=== PATIENT | male | born 1960 | race Caucasian/White ===

== ENCOUNTER 2023-04-29 18:59 | Observation (INO) | payer MEDICARE, SELFPAY ==
[2023-04-29 19:01] VITALS: BP 155/85; PULSE 66; RESP 15; TEMP 36.1; O2SAT 100; BMI 27.3
--- NOTE | 2023-04-29 19:36 | EKG12_ITS ---
Test Reason : ABNORMAL LABS Blood Pressure : / mmHG Vent. Rate : 062 BPM Atrial Rate : 062 BPM P-R Int : 206 ms QRS Dur : 138 ms QT Int : 464 ms P-R-T Axes : 043 -56 020 degrees QTc Int : 470 ms Normal sinus rhythm Right bundle branch block Left anterior fascicular block Bifascicular block Abnormal ECG Confirmed by REMIGIO VELASQUEZ, TANIKA ([id number]), medical transcription editor SANDY ORELLANA ([id number]) on 04/30/2023 9:37:46 AM Referred By: Confirmed By:TANIKA FLOOD MD
--- NOTE | 2023-04-29 19:39 | EX.ED.DYSGE1 ---
HPI History of Present Illness Chief Complaint: Abn Labs Informant: patient and spouse/S.O. Narrative Narrative: 63-year-old male significant medical history includes diabetes DVT brain aneurysm coronary artery disease hypertension presenting to the emergency department this Sunday night after being told on Sunday that he was in renal failure. Patient states that he recently moved from [place] and establish primary care several weeks ago. He went last week and had blood work for the first time with the [facility]. He brings a copy of the labs with him which show the following significant abnormalities (but not limited to): Hemoglobin 9.2 Platelet count 136 Sodium 137 potassium 4.9 Creatinine 2.91 BUN 60 glucose 140 CO2 18 Anion gap 14 Hemoglobin A1c 6.5 Random urine creatinine 57.4 Patient states that he received a call on Sunday telling him to come right to emergency out of concern for renal failure. States he really does not feel any different. He states that he was unsure if his insurance is excepted to this hospital and needs that checked before he will allow an evaluation. [facility] Medical History (Updated 04/29/23 @ 21:[address] Rola Bradshaw MD) Brain aneurysm Chronic anticoagulation Coronary artery disease Degenerative joint disease of left hip Diabetes mellitus Diabetic ulcer of left foot Diabetic ulcer of left great toe DVT (deep venous thrombosis) Hypertension Pulmonary embolism Home Medications amitriptyline 50 mg tablet 50 mg PO QHS SLEEP 04/29/23 [History Last Taken Unknown] amlodipine 5 mg tablet 5 mg PO DAILY BP 04/29/23 [History Last Taken Unknown] atorvastatin 80 mg tablet 80 mg PO QHS HYPERLIPIDEMIA 04/29/23 [History Last Taken Unknown] buspirone 5 mg tablet 5 mg PO TID anxiety 04/29/23 [History Last Taken Unknown] dulaglutide 1.5 mg/0.5 mL subcutaneous pen injector (Trulicity) 1.5 mg subcut QWEEK diabetes 04/29/23 [History Last Taken Unknown] gabapentin 300 mg capsule 300 mg PO Q12H neuropathy 04/29/23 [History Last Taken Unknown] losartan 100 mg tablet 100 mg PO DAILY hypertension 04/29/23 [History Last Taken Unknown] metoprolol tartrate 100 mg tablet 100 mg PO Q12H heart rate and blood pressure 04/29/23 [History Last Taken Unknown] naproxen 500 mg tablet 500 mg PO PRN pain 04/29/23 [History Last Taken Unknown] nitroglycerin 0.4 mg sublingual tablet 0.4 mg sublingual Q5M PRN chest pain 04/29/23 [History Last Taken Unknown] oxycodone myristate 13.5 mg capsule sprinkle extend release 12hr(DON'T CRUSH) (Xtampza ER) 13.5 mg PO Q12H lower extremity pain 04/29/23 [History Last Taken Unknown] ranolazine 500 mg tablet,extended release,12 hr 500 mg PO Q12H chest pain 04/29/23 [History Last Taken Unknown] venlafaxine 150 mg capsule,extended release 24 hr 150 mg PO DAILY depression 04/29/23 [History Last Taken Unknown] venlafaxine 75 mg capsule,extended release 24 hr 75 mg PO DAILY depression 04/29/23 [History Last Taken Unknown] Allergy/AdvReac Type Severity Reaction Status Date / Time No Known Allergies Allergy Verified 04/29/23 19:28 Surgical History (Updated 04/29/23 @ 20:27 by Marko Goodwin) H/O superior vena cava filter placement History of cholecystectomy Social History (Updated 04/29/23 @ 21:[address] Sujit Hughes, DO) Smoking Status: Current every day smoker Smokeless tobacco user: chewing tobacco ROS ROS ED Constitutional Constitutional ED: Denies chills or weight loss Eyes Eyes: Denies change in vision or diplopia ENT ENT ED: Denies ear pain, rhinorrhea or sore throat Cardiovascular Cardiovascular: Denies chest pain, orthopnea, palpitations or racing heartbeat Respiratory/Chest Respiratory/Chest: Denies cough, dyspnea or orthopnea Gastrointestinal Gastrointestinal: Denies abdominal pain, diarrhea, nausea or vomiting Genitourinary Genitourinary ED: Denies dysuria, hematuria or urinary frequency Musculoskeletal Musculoskeletal: Denies arthralgias or myalgias Integumentary Denies abscess or rash Neurologic Neurologic: Denies headache(s) or weakness Psychiatric Psychiatric: Denies anxiety, depression, suicidal ideation or suicidal thoughts Endocrine Endocrinology: Denies polydipsia, polyphagia or polyuria Allergic/Immunologic Allergic/Immunologic ED: Denies mouth swelling, tongue swelling or urticaria EXAM Physical Exam Const Vital Signs: 04/29/23 19:01 04/29/23 20:32 04/29/23 20:51 Temperature 96.9 F L Temperature Source Temporal Pulse Rate 66 Respiratory Rate 15 Respiratory Effort Normal Respiratory Pattern Normal Blood Pressure 155/85 H 171/87 H Blood Pressure Mean 108 115 Pulse Ox 100 Oxygen Delivery Method Room Air Positive well nourished and well developed General Appearance ED: well developed HEENT Reports normocephalic, head/scalp atraumatic and moist mucous membranes Eyes PERRL and EOMs intact bilaterally Neck no lymphadenopathy, supple and no JVD Resp normal respiratory effort and clear to auscultation bilaterally Cardio regular rate, regular rhythm and no murmurs GI normal to inspection, nondistended, normoactive bowel sounds and non-tender Palpation: soft Back/Spine no CVA tenderness and normal ROM Extremity normal to inspection General Extremety ED: Negative for edema General Extremity: Negative for edema Neuro oriented x3 and CN's II-XII intact bilaterally Sensorium / Orientation: alert Motor Exam: strength 5/5 throughout Psych mental status grossly normal Mood & Affect: Negative for depressed or tearful Skin no rashes or lesions noted and no wounds MDM MDM MDM Narrative Medical decision making narrative: White count has risen to 12.5 from 9.6. Remains thrombocytopenic at 134 hemoglobin 10.8. Creatinine tonight is 2.84 with a potassium now 5.3. I do not see any significant EKG changes related to the hyperkalemia. He does have 500 protein in the urine FeNa calculated at 3%. No obvious infection. Spoke with nephrology. Recommendation because we do not know what his baseline creatinine is and now has some degree of hyperkalemia is to have him admitted for renal ultrasound and further evaluation. Patient is consenting to this. I will speak with the hospitalist regarding admission History & Record Review Discussion w/independent historian: Patient and Significant other Additional record(s) reviewed:: Prior labs Lab Data Attestation: I reviewed the patient's lab results. Labs: Laboratory Results - last 24 hr 04/29/23 04/29/23 19:55 20:09 WBC 12.5 H RBC 3.40 L Hgb 10.8 L Hct 31.8 L MCV 93.5 MCH 31.8 MCHC 34.0 RDW Std Deviation 45.9 H RDW Coeff of Padmaja 13.4 Plt Count 134 L MPV 12.2 H Immature Gran % (Auto) 0.400 Neut % (Auto) 70.9 H Lymph % (Auto) 14.8 L Major % (Auto) 10.9 H Eos % (Auto) 2.2 Baso % (Auto) 0.8 Absolute Neuts (auto) 8.9 H Absolute Lymphs (auto) 1.86 Nucleated RBC % 0 Sodium 137 Potassium 5.3 H Chloride 106 Carbon Dioxide 21.0 Anion Gap 10 BUN 51 H Creatinine 2.84 H Estim Creat Clear Calc 26.62 Est GFR (MDRD) Af Amer 29 L Est GFR (MDRD) Non-Af 24 L BUN/Creatinine Ratio 18.0 Glucose 140 H Calcium 9.0 Total Bilirubin 0.70 Direct Bilirubin 0.12 AST 23 ALT 18 Alkaline Phosphatase 79 Total Protein 10.0 H Albumin 2.8 L Globulin 7.2 H Urine Color Yellow Urine Clarity Clear Urine pH 6.5 Ur Specific [place] 1.015 Urine Protein 500 H Urine Glucose (UA) 100 H Urine Ketones Negative Urine Occult Blood 25 H Urine Nitrite Negative Urine Bilirubin Negative Urine Urobilinogen Normal Ur Leukocyte Esterase Negative Urine RBC 0-5 SEEN Urine WBC 0-5 SEEN Ur Squamous Epith Cells 0 SEEN Urine Bacteria 0 SEEN Urine Mucus 0 SEEN Ur Random Sodium 65 Urine Creatinine 45.60 EKG Initial EKG: Attestation: I personally reviewed and interpreted this EKG as follows: Comments: Normal sinus rhythm ventricular rate of 62 bpm. Right bundle branch block and left anterior fascicular block seen. No prior EKGs in hospital system to compare to Prior EKG tracings: not available for review Discharge Plan Dx/Rx/DC Orders Clinical Impression: ROSALBA (acute kidney injury), Diabetes, Coronary artery disease, Chronic anticoagulation, Hypertension, Hyperkalemia Disposition Disposition: Acute Care Hospital [facility]
--- OUTSIDE RECORDS SUMMARY | 2023-04-29 19:48 | XMS RPT_ITS | CCD ---
Author Name Unknown Address [address] [place] [address] Organization [facility] Care Team Providers Care Nuclear Medicine Tech Name Role Phone Romero Rhoades MD Primary Care Provider Herminia Meraz APRN.CNP Primary Care Provider HERMINIA MERAZ Attending Unavailable ROMERO RHOADES Primary Care UnavailRomero Brunson MD Primary Care Provider Darrick Gomes MD Unavailable Ellie Unavailable DEVAN FOSTER Attending Unavailable ROMERO RHOADES Referring Unavailab ROMERO Restrepo Primary Care Unavailab ROMERO Restrepo Attending Unavailab ROMERO Restrepo Primary Care Unavailab HERMINIA Singh Primary Care Unavailable ROMERO RHOADES Attending Unavailab HERMINIA Singh Primary Care Unavailable ROMERO RHOADES Primary Care Unavailab ROMERO Restrepo Referring Unavailab ROMERO Restrepo Primary Care Unavailab ROMERO Restrepo Attending Unavailab DEVAN Langford Referring Unavailable DEVAN FOSTER Attending Unavailable ROMERO RHOADES Primary Care Unavailab DEVAN Langford Attending Unavailable ROMERO RHOADES Primary Care Unavailab DEVAN Langford Referring Unavailable ROMERO RHOADES Primary Care Unavailab le Medications Current Medications Medication Drug Class(es) Dates Sig (Normalized) Sig (Original) amLODIPine 5 mg oral tablet (11 sources) Dihydropyridine Calcium Channel Clair Start: 01-10-2023 End: 04-10-2023 take 1 tablet by mouth once daily amLODIPine (NORVASC) 5 mg tablet Take 1 tablet by mouth once daily. 30 tablet 2 01/10/2023 04/10/2023 Active Completed/Discontinued Medications Medication Drug Class(es) Dates Sig (Normalized) Sig (Original) amitriptyline hydrochloride 50 mg oral tablet (8 sources) Tricyclic Antidepressant Start: 08-29-2022 take 1 tablet by mouth at bedtime amitriptyline (ELAVIL) 50 mg tablet TAKE 1 TABLET BY MOUTH AT BEDTIME FOR 30 DAYS 0 08/29/2022 Active Problems Active Problems Problem Classification Problem Date Documented Da te Episodic/Chronic Administrative/social admission (3 sources) Patient encounter status; Translations: [Persons encountering health services in other specified circumstances] 11-13-2022 Episodic Anxiety disorders (11 sources) Anxiety; Translations: [Anxiety disorder, unspecified] Onset: 11-13-2022 11-13-2022 Chronic Chronic ulcer of skin (1 source) Non-pressure chronic ulcer of left heel and midfoot with other specified severity; Translations: [Diabetic ulcer of left midfoot associated with diabetes mellitus due to underlying condition, with other ulcer severity (HCC)] Onset: 01-22-2023 Chronic Coronary atherosclerosis and other heart disease (6 sources) Stable angina; Translations: [Other forms of angina pectoris] Onset: 01-10-2023 11-23-2022 Chronic Diabetes mellitus with complications (2 sources) Diabetes mellitus due to underlying condition with foot ulcer; Translations: [Secondary diabetes mellitus with other specified manifestations, not stated as uncontrolled, or unspecified] Onset: 01-22-2023 01-22-2023 Chronic Diabetes mellitus without complication (12 sources) Type 2 diabetes mellitus without complication; Translations: [Type 2 diabetes mellitus without complications] Onset: 11-09-2022 11-09-2022 Chronic Disorders of lipid metabolism (12 sources) Mixed hyperlipidemia; Translations: [Mixed hyperlipidemia] Onset: 11-09-2022 11-09-2022 Chronic Essential hypertension (12 sources) Essential hypertension; Translations: [Essential (primary) hypertension] Onset: 11-09-2022 11-09-2022 Chronic Immunizations and screening for infectious disease (1 source) Encounter for immunization; Translations: [Encounter for immunization] Onset: 04-24-2023 Episodic Mood disorders (10 sources) Moderately severe depression; Translations: [Moderately severe depression] Onset: 11-13-2022 11-09-2022 Chronic Mood disorders (2 sources) Mood disorders; Translations: [Moderately severe depression] Onset: 11-09-2022 Nutritional deficiencies (1 source) Vitamin D deficiency; Translations: [Vitamin D deficiency, unspecified] 01-19-2023 Chronic Other diseases of veins and lymphatics (4 sources) Stasis dermatitis; Translations: [Venous insufficiency (chronic) (peripheral)] Onset: 01-11-2023 01-16-2023 Episodic Other gastrointestinal disorders (1 source) Diarrhea; Translations: [Diarrhea, unspecified] 11-09-2022 Episodic Other nervous system disorders (1 source) Other chronic pain; Translations: [Chronic midline low back pain without sciatica] Onset: 11-09-2022 Chronic Other screening for suspected conditions (not mental disorders or infectious disease) (2 sources) Encounter for screening for malignant neoplasm of prostate; Translations: [Encounter for screening for lipoid disorders] Onset: 11-09-2022 Episodic Peripheral and visceral atherosclerosis (3 sources) Peripheral vascular disease; Translations: [Peripheral vascular disease, unspecified] Onset: 01-11-2023 01-11-2023 Chronic Substance-related disorders (3 sources) Tobacco user; Translations: [Nicotine dependence, unspecified, uncomplicated] Onset: 01-10-2023 01-10-2023 Chronic Thyroid disorders (11 sources) Goiter; Translations: [Nontoxic goiter, unspecified] Onset: 11-09-2022 11-09-2022 Chronic Unclassified (1 source) Chronic midline low back pain without sciatica; Translations: [Chronic midline low back pain without sciatica] Onset: 11-09-2022 Past or Other Problems Problem Classification Problem Date Documented Da te Episodic/Chronic Open wounds of extremities (12 sources) Disorder of foot; Translations: [Unspecified open wound, left foot, initial encounter] Onset: 11-09-2022 11-09-2022 Episodic Other upper respiratory infections (11 sources) Posterior rhinorrhea; Translations: [Postnasal drip] Onset: 11-09-2022 11-09-2022 Episodic Spondylosis; intervertebral disc disorders; other back problems (10 sources) Chronic low back pain; Translations: [Chronic midline low back pain without sciatica] Onset: 11-13-2022 11-09-2022 Episodic Results Test Name Value Interpretation Reference Range Facil ity Vital Signs Date Time Vital Sign Value Performing Clinician Milagros umaña 11-09-2022 16:15-0400 Body temperature 97.81 [degF] Herminia Queden VP INFORMATICS.DRUG ABUSE COUNSELOR Work Phone: [facility] 11-09-2022 16:15-0400 Diastolic blood pressure 76 mm[Hg] Herminia Queden VP INFORMATICS.DRUG ABUSE COUNSELOR Work Phone: [facility] 11-09-2022 16:15-0400 Heart rate 45 /min Herminia Queden VP INFORMATICS.DRUG ABUSE COUNSELOR Work Phone: [facility] 11-09-2022 16:15-0400 Respiratory rate 20 /min Herminia Queden VP INFORMATICS.DRUG ABUSE COUNSELOR Work Phone: [facility] 11-09-2022 16:15-0400 SaO2% (BldA) [Mass fraction] 97 % Herminia Queden VP INFORMATICS.DRUG ABUSE COUNSELOR Work Phone: [facility] 11-09-2022 16:15-0400 Systolic blood pressure 120 mm[Hg] Herminia Queden VP INFORMATICS.DRUG ABUSE COUNSELOR Work Phone: [facility] Encounters Encounter Date Encounter Type Care Provider Facility Start: 04-24-2023 End: 04-25-2023 ambulatory ROMERO RHOADES Facility:[facility] Start: 04-24-2023 End: 04-25-2023 ambulatory ROMERO RHOADES Facility:[facility] Start: 04-17-2023 End: 04-17-2023 ambulatory DEVAN FOSTER Facility:[facility] Start: 03-16-2023 End: 03-16-2023 ambulatory [facility] Facility:[facility] Start: 01-22-2023 End: 01-22-2023 ambulatory [facility] Facility:[facility] Start: 01-22-2023 End: 01-22-2023 ambulatory [facility] Facility:[facility] Start: 01-22-2023 End: 01-22-2023 Subsequent hospital visit by physician [facility] Cruz Chau Work Phone: Radiology Procedures Date Procedure Procedure Detail Performing Clinician Start: 01-22-2023 Radex foot complete minimum 3 views Devan Lomaxlena Work Phone: Plan of Treatment Date Care Activity Detail Author Start: 01-11-2024 Annual PCP Team Perfume Compounder marivel Disease Visit Annual PCP Team Chronic Disease Visit [facility] Start: 01-11-2024 Hepatitis B Vaccine (1 of 3 - Risk 3-dose series) Hepatitis B Vaccine (1 of 3 - Risk 3-dose series) [facility] Immunizations Immunization Date Immunization Notes Care Provider Fa cility 01-10-2023 influenza, injectabl e, quadrivalent, contains preservative Romero Rhoades MD Work Phone: [facility] 03-16-2022 COVID-19 original vaccine, full dose, monovalent (MODERNA) Romero Rhoades MD Work Phone: [facility] 04-22-2021 COVID-19 original vaccine, full dose, monovalent (MODERNA) Romero Rhoades MD Work Phone: [facility] 08-02-2020 COVID-19 original vaccine, full dose, monovalent (MODERNA) Romero Rhoades MD Work Phone: [facility] 07-05-2020 COVID-19 original vaccine, full dose, monovalent (MODERNA) Romero Rhoades MD Work Phone: [facility] 07-05-2020 COVID-19 vaccine, ag e 12+ yr, bivalent (MODERNA) Romero Rhoades MD Work Phone: [facility] Payers Date Payer Category Payer Medicare HUMANA MEDICARE HU[employer]NA GOLD PLUS [id number] 2019-Present [id number] [place] [id number] O [id number] 2019 Private Health Insurance [id number] Social History Date Type Detail Facility Start: 11-09-2022 [facility] History of tobacco use Current smoker [facility] History of tobacco use Cigarette Smoker [facility] Start: 11-09-2022 End: 01-22-2023 Tobacco use and exposure User of smokeless tobacco [facility] of tobacco use [facility] Start: 11-09-2022 End: 01-22-2023 Alcohol intake Ex-drinker (finding) [facility] Start: 11-09-2022 End: 01-10-2023 History of Social function [facility] Work Phone: Start: 11-09-2022 End: 01-10-2023 Tobacco use panel [facility] Work Phone: National Score (1-100), lower number is lower risk 70 [facility] Work Phone: Start: 1960 Sex Assigned At Not on file [facility] Start: 01-10-2023 End: 01-22-2023 Tobacco smoking status NHIS Smokes tobacco daily [facility] Work Phone: Start: 01-10-2023 Tobacco Comment Used to smoke 1/2 pack per day. Chewing 1 can per week. [facility] Start: 01-22-2023 Tobacco Comment Used to smoke 3 per day. Chewing 1 can per week. [facility] Clinical Notes 11-09-2022 to 04-19-2023 Neli Sultana, RT(R) - 01/22/2023 10:30 AM EDTTelephone Encounter - Gricelda Goodwin LPN - 01/19/2023 2:41 PM EDTTelephone Encounter - Devna Foster - 01/19/2023 1:37 PM EDTPatient Instructions Note Date & Type Note Facility 04-19-2023 Note HNO ID: [id number] Author: DEVAN FOSTER, ? Service: ? Author Type: Physician Type: Progress Notes Filed: 04/19/2023 07:22 Note Text: FOLLOW UP PODIATRIC OFFICE VISIT Chief Complaint: This 63 year old who presents for follow up:left foot ulceration. Patient presents to clinic for follow-up left hallux and left forefoot ulceration. Reports to using his diabetic shoe or surgical shoe. No other complaints. PAIN EVALUATION No data found in the last 1 encounters. No results found for: HBA1C PCP: Romero Rhoades MD PAST MEDICAL HISTORY Diagnosis Date Anxiety Brain aneurysm right optic nerve CAD (coronary artery disease) stent x1 CHF (congestive heart failure) ([facility]) Patient reports EF 45% Chronic leg pain Dr. Gomes Chronic lower back pain Dr. Gomes History of DVT (deep vein thrombosis) Hyperlipidemia Hypertension Moderately severe depression Myocardial infarction (HCC) x2 OA (osteoarthritis) of hip left Overweight (BMI 25.0-29.9) Presence of IVC filter Stasis dermatitis of both legs Thyroid enlargement Tobacco use disorder Type 2 diabetes (HCC) Wound of left lower extremity Dr. Argueta for podiatry Wound of right lower extremity Current Outpatient Medications Medication Sig busPIRone (BUSPAR) 5 mg tablet Take 1 tablet by mouth three times a day. TRULICITY 1.5 mg/0.5 mL pen injector Inject 1.5 mg subcutaneously one time a week. metoprolol tartrate, short acting, (LOPRESSOR) 100 mg tablet Take 1 tablet by mouth two times a day. amLODIPine (NORVASC) 5 mg tablet Take 1 tablet by mouth once daily. XTAMPZA ER 9 mg CSpT Take 1 capsule by mouth twice daily. Dr. Mendoza nitroglycerin sublingual (NITROQUICK) 0.4 mg SL tablet Dissolve 1 tablet under the tongue every 5 minutes as needed for chest pain. venlafaxine ER (EFFEXOR XR) 150 mg 24 hr capsule 1 capsule once daily. furosemide (LASIX) 40 mg tablet Take 1 tablet by mouth once daily. rivaroxaban (XARELTO) 20 mg tablet Take 1 tablet by mouth daily with dinner. ranolazine ER (RANEXA) 500 mg 12 hr tablet 1 tablet twice daily. losartan (COZAAR) 100 mg tablet Take 100 mg by mouth once daily. naproxen (NAPROSYN) 500 mg tablet Take 1 tablet by mouth twice daily with meals. atorvastatin (LIPITOR) 80 mg tablet Take 1 tablet by mouth once daily. Psyllium Husk-Aspartame (METAMUCIL SUGAR-FREE, ASPART,) 3.4 gram/5.8 gram powd Take 1 Dose by mouth once daily. doxycycline hyclate (VIBRAMYCIN) 100 mg capsule Take 1 capsule by mouth two times a day. venlafaxine ER (EFFEXOR XR) 75 mg 24 hr capsule Take 1 capsule by mouth once daily. Take with 150 mg Effexor XR to equal 225 mg daily. gabapentin (NEURONTIN) 300 mg capsule Take 1 capsule by mouth three times daily for 30 days. No current facility-administered medications for this visit. ALLERGIES No Known Allergies PAST SURGICAL HISTORY Procedure Laterality Date CORONARY STENT INITIAL 2007 IVC FILTER REMOVAL GALLBLADDER TONSILLECTOMY AND ADENOIDECTOMY Physical Exam: OBJECTIVE: Constitutional: Pt is a well developed 63 year old male who is alert, oriented, cooperative and in no apparent distress. Eyes: Following during examination. No redness or drainage. Respiratory: RR normal and nonlabored. Even breathing. No evidence of distress. Psychology: Patient is engaged during conversation. Normal affect and mood. Does not appear depressed or anxious. NVSI unchanged from previous visit. Dermatological: Hyperkeratotic tissue with bleeidng upon debirdement to left hallux ipj and left forefoot ASSESSMENT: Diabetic ulcer of left midfoot associated with diabetes mellitus due to underlying condition, with other ulcer severity (hcc) (primary encounter diagnosis) PLAN: Patient was examined and we discussed the appearance of left hallux and left midfoot wounds. The wounds appear as callus with bleeding upon debridement. Clinically, this would consist of verruca vs ulceration etiology. Given his neuropathy, arthritis of hallux ipj I feel that although wart is one etiology, I do feel these are more that of diabetic ulceration. All nonviable tissue was debrided today with 15 blade and tissue nippers. The wounds appear mostly healed and just as superficial bleeding. We discussed treating with acid but my concern is the acid may lead to blistering and in the event these are related to diabetic ulceraiton, it could lead to worsening. I feel that his best treatment is to continue with offloading insert and periodic debridement. Will have him follow-up in 2-3 weeks. Will discuss pathology results with pathologist In order to perform a complete physical exam, limited shaving of callus area was performed. This incidental service is integral to the evaluation and management visit in order to appropriately manage and treat the patient (for their complaint or for this visit). Devan Foster DPM [facility] 04-17-2023 Note HNO ID: [id number] Author: ARON FOWLER RN Service: ? Author Type: Registered Nurse Type: Progress Notes Filed: 04/19/2023 07:22 Note Text: [facility] 01-22-2023 Note HNO ID: [id number] Author: Gricelda Goodwin LPN Service: ? Author Type: LICENSED NURSE Type: Progress Notes Filed: 01/23/2023 12:48 PM Note Text: Per Dr. Foster, Winnie was provided with 1 package of aquecel, post op shoe size M, diabetic Impax insert size M and instructed/educated in its application, wear, and care. All questions were answered, and patient was able to demonstrate competence with the necessary skills to utilize the above equipment supplies. Patient was provided with weeks worth of supplies and order to rinmae solorioare was filled out and faxed. Gricelda Goodwin LPN [facility] 01-22-2023 Note HNO ID: [id number] Author: Neli Sultana RT(R) Service: ? Author Type: Technologist Type: Progress Notes Filed: 01/22/2023 10:55 AM Note Text: Radiology Service Progress Note PATIENT NAME: Winnie Padilla DATE OF SERVICE: January 22, 2023 TIME: 10:55 AM PATIENT IDENTITY VERIFICATION COMPLETED USING TWO (2) IDENTIFIERS: Name and Date of confirmed by patient verbally. FALL SCREENING: Has the patient had 2 falls in the last year or 1 fall with injury or currently using an Ambulatory Assistive Device (Walker, Cane, Wheelchair, Crutches, etc.)? Yes, Patient High Risk for Falls What interventions were put in place to prevent falls during this visit? Increased Observations by Caregivers PATIENT GENDER DATA: Male PATIENT RELEVANT IMPLANT DATA REVIEWED: Not Applicable RADIOLOGY DEPARTMENT: General X-ray: Exam(s) Completed: Lower Extremity X-Ray(s): Foot, Left PERIPHERAL IV DATA: Not applicable SIGNED BY: RT Mary(R) January 22, 2023 10:55 AM [facility] 01-22-2023 Note HNO ID: [id number] Author: Devan Foster Service: ? Author Type: Physician Type: Progress Notes Filed: 01/23/2023 12:48 PM Note Text: Consultation requested by Dr. Rhoades for an opinion regarding left foot ulceration. My final recommendations will be communicated back to the requesting physician by way of shared Medical record or letter to requesting physician via US mail. Initial Office Visit Subjective: This 63 year old male presents to clinic for diabetic foot check. Patient has the following complaints: ulceration of left foot. Patient presents to clinic for evaluation of left foot. He tends to develop callus of left hallux and left 3rd metatarsal. These wounds have been present for nearly 5 years. He tries to offload them with diabetic shoes/inserts but he continues to develop these wounds. He has been seen by podiatry in [place] who has proposed possible ANGELITO and also ivanna osteotomy of the 3rd metatarsal but this has never been done. He moved to [place] recently to be closer with his family. He recently saw DR. Argueta in [place] [facility] but he had falling out so is here for 2nd opinion. Patient admits to being diabetic for 20+ years now. Patient +B/T/N in feet at this time. Patient -pain in legs when walking. No other pedal complaints at this time. No change in medications or medical history since last visit. PAIN EVALUATION 01/22/2023 0853 Pain Level: 8 Pain Location: Foot-Left Description: Sore Duration Amount of Time: 5 Duration Units: Years Frequency: Continuous Intervention/Comfort measure: Reposition;Relaxation No results found for: HBA1C PCP: Romero Rhoades MD PAST MEDICAL HISTORY Diagnosis Date Anxiety Brain aneurysm right optic nerve CAD (coronary artery disease) stent x1 CHF (congestive heart failure) ([facility]) Patient reports EF 45% Chronic leg pain Dr. Gomes Chronic lower back pain Dr. Gomes History of DVT (deep vein thrombosis) Hyperlipidemia Hypertension Moderately severe depression Myocardial infarction ([facility]) x2 OA (osteoarthritis) of hip left Overweight (BMI 25.0-29.9) Presence of IVC filter Stasis dermatitis of both legs Thyroid enlargement Tobacco use disorder Type 2 diabetes ([facility]) Wound of left lower extremity Dr. Argueta for podiatry Wound of right lower extremity Current Outpatient Medications Medication Sig XTAMPZA ER 9 mg CSpT Take 1 capsule by mouth twice daily. Dr. Mendoza nitroglycerin sublingual (NITROQUICK) 0.4 mg SL tablet Dissolve 1 tablet under the tongue every 5 minutes as needed for chest pain. busPIRone (BUSPAR) 5 mg tablet Take 1 tablet by mouth twice daily. TRULICITY 1.5 mg/0.5 mL pen injector 1.5 mg one time a week. venlafaxine ER (EFFEXOR XR) 150 mg 24 hr capsule 1 capsule once daily. furosemide (LASIX) 40 mg tablet Take 1 tablet by mouth once daily. rivaroxaban (XARELTO) 20 mg tablet Take 1 tablet by mouth daily with dinner. venlafaxine ER (EFFEXOR XR) 75 mg 24 hr capsule Take 1 capsule by mouth once daily. Take with 150 mg Effexor XR to equal 225 mg daily. ranolazine ER (RANEXA) 500 mg 12 hr tablet 1 tablet twice daily. amLODIPine (NORVASC) 5 mg tablet Take 1 tablet by mouth once daily. losartan (COZAAR) 100 mg tablet Take 100 mg by mouth once daily. naproxen (NAPROSYN) 500 mg tablet Take 1 tablet by mouth twice daily with meals. metoprolol tartrate, short acting, (LOPRESSOR) 100 mg tablet Take 0.5 tablets by mouth twice daily. atorvastatin (LIPITOR) 80 mg tablet Take 1 tablet by mouth once daily. Psyllium Husk-Aspartame (METAMUCIL SUGAR-FREE, ASPART,) 3.4 gram/5.8 gram powd Take 1 Dose by mouth once daily. gabapentin (NEURONTIN) 300 mg capsule Take 1 capsule by mouth three times daily for 30 days. No current facility-administered medications for this visit. ALLERGIES No Known Allergies PAST SURGICAL HISTORY Procedure Laterality Date CORONARY STENT INITIAL 2007 IVC FILTER REMOVAL GALLBLADDER TONSILLECTOMY AND ADENOIDECTOMY FAMILY HISTORY Problem Relation Age of Onset Heart disease Mother Heart disease Father Diabetes Father Hypertension Father COPD Paternal Grandfather Heart disease Half-brother No Known Problems Son Social History Tobacco Use Smoking status: Every Day Packs/day: 0.25 Years: 46.00 Additional pack years: 0.00 Total pack years: 11.50 Types: Cigarettes Smokeless tobacco: Current Types: Chew Tobacco comments: Used to smoke 3 per day. Chewing 1 can per week. Vaping Use Vaping Use: Never used Substance Use Topics Alcohol use: Not Currently Drug use: Not Currently REVIEW OF SYSTEMS GENERAL: Negative for Malaise, significant weight loss, fever RESPIRATORY: Negative for cough, wheezing and shortness of breath CARDIOVASCULAR: Negative for chest pain, leg swelling and palpitations GI: Negative for abdominal discomfort, blood in stools or black stools and change in bowel habits (more content not included)... [facility] 01-22-2023 Note HNO ID: [id number] Author: Gricelda Goodwin LPN Service: ? Author Type: LICENSED NURSE Type: Progress Notes Filed: 01/23/2023 12:48 PM Note Text: AMB ROOMING INTAKE FLOWSHEET DATA Pain Pain Level: 8 Pain Location: Foot-Left Description: Sore Duration Amount of Time: 5 Duration Units: Years Frequency: Continuous Intervention/Comfort measure: Reposition, Relaxation Patient presents with: Left Foot - Ulcer, Callous, New, Pain Gricelda Goodwin LPN [facility] 01-22-2023 History of Presen t illness Narrative Radiology Service Progress Note PATIENT NAME: Winnie Padilla DATE OF SERVICE: January 22, 2023 TIME: 10:55 AM PATIENT IDENTITY VERIFICATION COMPLETED USING TWO (2) IDENTIFIERS: Name and Date of confirmed by patient verbally. FALL SCREENING: Has the patient had 2 falls in the last year or 1 fall with injury or currently using an Ambulatory Assistive Device (Walker, Cane, Wheelchair, Crutches, etc.)? Yes, Patient High Risk for Falls What interventions were put in place to prevent falls during this visit? Increased Observations by Caregivers PATIENT GENDER DATA: Male PATIENT RELEVANT IMPLANT DATA REVIEWED: Not Applicable RADIOLOGY DEPARTMENT: General X-ray: Exam(s) Completed: Lower Extremity X-Ray(s): Foot, Left PERIPHERAL IV DATA: Not applicable SIGNED BY: RT Mary(R) January 22, 2023 10:55 AM documented in this encounter [facility] 01-19-2023 Miscellaneous Notes Entered in Error. Gricelda Goodwin LPN Order for vitamin d made Devan Foster DPM documented in this encounter [facility] 01-17-2023 Miscellaneous Notes Called patient and offered appointment on 01/22/2023 at 8:45. Patient accepted. Gricelda Goodwin LPN Will send to podiatry pool - Please see below regarding patient appointment. Rupinder Montoya MA Msg sent to Dr. Foster staff. Pt notified we will contact him tomorrow. Referral order placed. Please assist with scheduling. No he is not having any problems. He stated that he just has to get it debrided every couple of weeks and it is almost time. 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 He just wondered if we could make it an urgent referral so he can get in sooner. I can put in a referral for [facility] podiatry Dr. Foster. Is he having symptoms he would need evaluated in the ER for? Worsening wound, spreading redness, drainage, streaking, or fever? Pt requesting an urgent referral to a government professor (within the next week). He and the current government professor he was seeing having not been seeing eye to eye. He last saw that government professor a couple of weeks ago. Per Dr. Rhoades last OV in [facility]: Patient following up with Dr. Argueta for Podiatry for chronic wounds on his left foot. Last OV was about 2 weeks ago. Took doxycycline as prescribed for this wound. Not sure when his next appointment is. Pt states he usually gets the foot debrided every couple of weeks. He says he can go up to a month but is hoping Dr. Rhoades can get a referral in to someone soon. documented in this encounter [facility] 01-10-2023 Note HNO ID: [id number] Author: Romero Rhoades MD Service: ? Author Type: Physician Type: Progress Notes Filed: 01/11/2023 10:01 AM Note Text: Chief Complaint Patient presents with: Establish Care HPI Winnie Padilla is a 62 year old male who presents here today for Above Complaints. Previous PCP was in [place] at [facility] with last OV about 4-5 months ago. Moved here in October to be close to family. Patient states he needs referral to cardiology in the area. Has known CAD with stent x1. Also has IVC filter in place for history of DVTs which he states has migrated up near his heart. Has not seen vascular surgery for this and cannot recall what type of imaging was done in the past. Denies angina, SOB, palpitations, LE edema. Patient following up with Dr. Argueta for Podiatry for chronic wounds on his left foot. Last OV was about 2 weeks ago. Took doxycycline as prescribed for this wound. Not sure when his next appointment is. Denies fever/chills, spreading redness, warmth or drainage. Type II diabetic on Trulicity 1.5 mg weekly and states that his A1c always hovers around 7. Checking his sugars at home once every 1-2 weeks with readings in the 120-125 range fasting. Follows DM diet most of the time. Admits to worsening neuropathy. Denies polyuria, polyphagia, polydipsia. Overdue for DM eye exam and noted difficulty seeing distances. On Effexor and Buspar for depression and anxiety. States that he does not feel like either condition are well controlled on this regimen. Not seeing counseling. Denies SI/HI, panic symtpoms, manic episodes. 01/10/2023 1551 Last Filed Value JOSÉ MIGUEL-7 - over the last 2 weeks... Feeling nervous, anxious, or on edge Several days Several days Not being able to stop or control worrying Not at all Not at all Worrying too much about different things Several days Several days Trouble relaxing Not at all Not at all Being so restless that it is hard to sit still Not at all Not at all Becoming easily annoyed or irritable Several days Several days Feeling afraid, as if something awful might happen Not at all Not at all How difficult to do work, care for home, get along with people Somewhat difficult Somewhat difficult JOSÉ MIGUEL-2 Total Score 1 1 JOSÉ MIGUEL-7 Total Score 3 3 JOSÉ MIGUEL-7 Score 3 3 01/10/2023 1551 Last Filed Value PHQ-9 Little interest or pleasure in doing things Several days Several days Feeling down, depressed, or hopeless Several days Several days Trouble falling or staying asleep, or sleeping too much Several days Several days Feeling tired or having little energy Several days Several days Poor appetite or overeating Not at all Not at all Feeling bad about yourself - or that you are a failure or have let yourself or your family down Several days Several days Trouble concentrating on things, such as reading the newspaper or watching television Not at all Not at all Moving or speaking so slowly that other people could have noticed. Or the opposite - being so fidgety or restless that you have been moving around a lot more than usual Not at all Not at all Thoughts that you would be better off , or of hurting yourself in some way Not at all Not at all If you checked off any problems, how difficult have these problems made it for you to do your work, take care of things at home, or get along with other people? Somewhat difficult Somewhat difficult PHQ-9 score 5 5 PHQ-9 Score 5 5 PHQ-2 score 2 2 PHQ-2 Score 2 2 Smoking 1/4 pack per day and chewing 1 can per week. Thinking about quitting, but does not want help today. Requesting influenza vaccine today. Thinks he had pneumococcal in the last year. Past medical history, appointments, medications, allergies reviewed. Previous Medical History PAST MEDICAL HISTORY Diagnosis Date Anxiety Brain aneurysm right optic nerve CAD (coronary artery disease) stent x1 CHF (congestive heart failure) ([facility]) Patient reports EF 45% Chronic leg pain Dr. Gomes Chronic lower back pain Dr. Gomes History of DVT (deep vein thrombosis) Hyperlipidemia Hypertension Moderately severe depression Myocardial infarction (HCC) x2 OA (osteoarthritis) of hip left Overweight (BMI 25.0-29.9) Presence of IVC filter Thyroid enlargement Tobacco use disorder Type 2 diabetes (HCC) Wound of left lower extremity Dr. Argueta for podiatry Wound of right lower extremity Previous Surgical History PAST SURGICAL HISTORY Procedure Laterality Date IVC FILTER REMOVAL GALLBLADDER TRANSV CAROTID STENT PLACEMT Family History No family history on file. Patient Allergies ALLERGIES No Known Allergies Current Medications Current Outpatient Medications on File Prior to Visit Medication Sig XTAMPZA ER 9 mg CSpT Take 1 capsule by mouth twice daily. Dr. Mendoza nitroglycerin sublingual (NITROQUICK) 0.4 mg SL tablet Dissolve 1 tablet under the tongue every 5 minut (more content not included)... [facility] 12-25-2022 Miscellaneous Notes Patient notified. Coty Joy MA I will send in 1 more week but if it continues he should come in for an appointment. Patient called and left a message stating he is still has welts on his leg and he is about to run out of doxycyline and wants to know if he can have more sent in Lenore Walters MA Vm not set up. Coty Joy MA I reviewed his culture that grew MRSA. The Doxycycline is appropriate for this. Patient called and left a message requesting nitroquick and he was wanting to know what Herminia thinks of his culture results Lenore Walters MA documented in this encounter [facility] 12-20-2022 Miscellaneous Notes Patient returned call and given provider's message below and patient verbalized understanding. Heri Mcconnell RN Unable to reach patient. Mailbox full/Mailbox not set up/ Number incorrect. Please try again later. Neli Bocanegra Bacterial infection noted on wound culture. Continue antibiotics as prescribed. Follow-up with PCP if symptoms are not improving. Luis Hill APRN.COLETTE documented in this encounter [facility] 12-17-2022 Note HNO ID: [id number] Author: Darby Angel APRN.COLETTE Service: ? Author Type: Nurse Practitioner Type: Progress Notes Filed: 12/17/2022 11:18 AM Note Text: This note was created using Buyap[employer]ater. Subjective Winnie Padilla is a 62 year old male. Patient presents with wounds on his left posterior lower leg and right anterior distal thigh. Patient noticed his left leg wounds approximately 10 days ago and right leg wounds four days ago. His daughter and have been providing wound care for him at home. Denies fever or chills. Wounds are painful and pruritic. The wounds have not improved with treatment at home. Of note patient has recently moved here from [place]. Established with Herminia Meraz, where a wound consult was placed, but has yet to do it. He also endorses he doesn't check his sugars, And is on Trulicity weekly. The history is provided by the patient. Review of Systems Constitutional: Negative for chills and fever. Respiratory: Negative for shortness of breath. Cardiovascular: Negative for chest pain. Skin: Positive for wound. All other systems reviewed and are negative. Objective BP 145/66 Pulse (!) 40 Temp 36.4 ?C (97.6 ?F) Resp 18 SpO2 100% PAST MEDICAL HISTORY Diagnosis Date Hypertension Low back pain Type 2 diabetes (HCC) PAST SURGICAL HISTORY Procedure Laterality Date REMOVAL GALLBLADDER TRANSV CAROTID STENT PLACEMT ALLERGIES Patient has no known allergies. MEDICATIONS nitroglycerin sublingual (NITROQUICK) 0.4 mg SL tablet Dissolve 1 tablet under the tongue every 5 minutes as needed for chest pain. venlafaxine ER (EFFEXOR XR) 150 mg 24 hr capsule ranolazine ER (RANEXA) 500 mg 12 hr tablet TRULICITY 1.5 mg/0.5 mL pen injector amLODIPine (NORVASC) 5 mg tablet amitriptyline (ELAVIL) 50 mg tablet TAKE 1 TABLET BY MOUTH AT BEDTIME FOR 30 DAYS losartan (COZAAR) 100 mg tablet Take 100 mg by mouth once daily. naproxen (NAPROSYN) 500 mg tablet Take 1 tablet by mouth twice daily with meals. busPIRone (BUSPAR) 5 mg tablet Take 1 tablet by mouth three times daily. metoprolol tartrate, short acting, (LOPRESSOR) 100 mg tablet Take 0.5 tablets by mouth twice daily. atorvastatin (LIPITOR) 80 mg tablet Take 1 tablet by mouth once daily. fluticasone (FLONASE) 50 mcg/actuation nasal spray Use 2 Sprays in each nostril once daily. Psyllium Husk-Aspartame (METAMUCIL SUGAR-FREE, ASPART,) 3.4 gram/5.8 gram powd Take 1 Dose by mouth once daily. lactobacillus comb no.10 (PROBIOTIC) 20 billion cell cap Take 1 capsule by mouth once daily. doxycycline monohydrate 100 mg tablet Take 1 tablet by mouth twice daily for 7 days. gabapentin (NEURONTIN) 300 mg capsule Take 1 capsule by mouth three times daily for 30 days. No family history on file. Social History Tobacco Use Smoking status: Former Types: Cigarettes Smokeless tobacco: Current Types: Chew Substance Use Topics Alcohol use: Not Currently Drug use: Not Currently Physical Exam Vitals reviewed. Constitutional: General: He is not in acute distress. Appearance: Normal appearance. He is not ill-appearing or toxic-appearing. Cardiovascular: Rate and Rhythm: Normal rate and regular rhythm. Pulmonary: Effort: Pulmonary effort is normal. No respiratory distress. Breath sounds: Normal breath sounds. Skin: Findings: Bruising and wound present. Comments: Bilateral lower legs with hyperpigmentation. Neurological: General: No focal deficit present. Mental Status: He is alert and oriented to person, place, and time. Mental status is at baseline. Psychiatric: Mood and Affect: Mood normal. Behavior: Behavior normal. Thought Content: Thought content normal. Judgment: Judgment normal. Assessment and Plan ASSESSMENT/PLAN: 1. Wound of left lower extremity, initial encounter - ICD9: 894.0, ICD10: S81.802A (primary diagnosis) - Wound bed is clean but draining. - Doxycycline sent to pharmacy - Wound dressed with nonadherent dressing. - Culture sent - Follow up with PCP and wound care - ABSCESS AND WOUND CULTURE WITH GRAM STAIN - CONSULT TO SKIN CARE TEAM 2. Chronic venous insufficiency - ICD9: 459.81, ICD10: I87.2 - See above - CONSULT TO SKIN CARE TEAM E Daisha [employer] A[employer] Student TEACHING PROVIDER (Physician/PA/VP INFORMATICS) NOTE OF PERSONAL INVOLVEMENT IN CARE: I have personally seen and examined the patient and performed the medical decision-making components. I have reviewed the Advanced Practice Registered Nurse (VP INFORMATICS) Student's documentation and verified the findings in the note as written. Any additions or changes are noted in bold/italics. Signature: Darby Angel Date: 12/17/2022 Time: 11:17 AM [facility] 11-22-2022 Miscellaneous Notes patient phones requesting refills as follows: Last seen 11/09/22 . Last refill previous pcp . Requested Prescriptions Pending Prescriptions Disp Refills nitroglycerin sublingual (NITROQUICK) 0.4 mg SL tablet Please review and advise. Rochelle Stanley MA documented in this encounter [facility] 11-21-2022 Miscellaneous Notes Received a referral from Herminia Meraz APRN.DRUG ABUSE COUNSELOR for a New Patient for CONSULT TO PAIN MGT Please call and schedule patient. Isauro De La Cruz [place] to Dr. Ventura, Disha Briggs PA-C, Workers Compensation [facility] P: [id number] / F: [phone] / [email or web address] documented in this encounter [facility] 11-10-2022 Miscellaneous Notes Put referral for Cardiology with Dr Yates on [facility] Portal 11/10/22 Confirmation # [id number] CRUSSELL1 11/10/22 08:57 CR// 11/10/2022// I called and LVM scheduled Pt. 02/01/2023 at 9:20 w/ Dr. Arellano in [place]. documented in this encounter [facility] 11-10-2022 Miscellaneous Notes PT referred by Daina Meraz.Icalled Pt to scheduled his New Pt Apt.. Pt. Scheduled for 02/01/2023 at 9:[address] Arellano in [place]. Barbara Molina November 10, 2022 9:45 AM documented in this encounter [facility] 11-09-2022 Note HNO ID: [id number] Author: Herminia Meraz APRN.DRUG ABUSE COUNSELOR Service: ? Author Type: Nurse Practitioner Type: Progress Notes Filed: 11/13/2022 10:01 AM Note Text: [facility] Herminia Meraz VP INFORMATICS-DRUG ABUSE COUNSELOR [address] [place] [address] Dept Dept. Visit Date: November 09, 2022 Mr.Joe Padilla Date of : 1960 MRN/E #: [id number] Chief Complaint: Patient presents with: Establish Care History of Present Illness Winnie Padilla is a 62 year old male here as a new patient. I reviewed past medical, surgical, social, and family histories today and updated chart. Allergies, chronic medications, and supplements were also reviewed. His is present with him today who also established care yesterday. PMH of HTN, low back pain, Type 2 DM, chronic foot wounds, HPL. He recently moved to [place] from [place]. Will have to request his records. He has a few concerns to go over today and needs medication refills. Has had a productive cough for the last month Had a cold before the cough No recent fevers Some SOB Was on Oxycodone since 2002 but has been out the last couple weeks and has felt like she was having flu like symptoms, believes it to be from withdrawal symptoms Was following pain management. Needs referral to Wound center 2 ulcers on left foot- left big toe and bottom towards the heel Has had infections in the past Has a callus takes care of his wounds currently Was following with cardiology Has an extra beat in his heart? Has had 2 NJ's- 1 stent in 2007 Cavafilter? Was never told to have it removed and it dislodged and now grown into vena cava? Brain aneurysm in 2002 Did not require surgery Developed DVTs in both legs in 2002 Needs to see urology Difficulty starting stream and leaking Has been on Trulicity for a few years Was able to come off Metformin Severe depression Effexor and Buspar Has been having worsening anxiety recently with all the changes Currently living in a trailer with family The history is provided by the patient and the spouse. No language assistant was used. PAST MEDICAL HISTORY Diagnosis Date Hypertension Low back pain Type 2 diabetes (HCC) PAST SURGICAL HISTORY Procedure Laterality Date REMOVAL GALLBLADDER TRANSV CAROTID STENT PLACEMT Social History Tobacco Use Smoking status: Former Types: Cigarettes Smokeless tobacco: Current Types: Chew Substance Use Topics Alcohol use: Not Currently Drug use: Not Currently Social History Social History Narrative Not on file No family history on file. ALLERGIES No Known Allergies Current Outpatient Medications Medication Sig venlafaxine ER (EFFEXOR XR) 150 mg 24 hr capsule ranolazine ER (RANEXA) 500 mg 12 hr tablet nitroglycerin sublingual (NITROQUICK) 0.4 mg SL tablet TRULICITY 1.5 mg/0.5 mL pen injector amLODIPine (NORVASC) 5 mg tablet amitriptyline (ELAVIL) 50 mg tablet TAKE 1 TABLET BY MOUTH AT BEDTIME FOR 30 DAYS losartan (COZAAR) 100 mg tablet Take 100 mg by mouth once daily. gabapentin (NEURONTIN) 300 mg capsule Take 1 capsule by mouth three times daily for 30 days. naproxen (NAPROSYN) 500 mg tablet Take 1 tablet by mouth twice daily with meals. busPIRone (BUSPAR) 5 mg tablet Take 1 tablet by mouth three times daily. metoprolol tartrate, short acting, (LOPRESSOR) 100 mg tablet Take 0.5 tablets by mouth twice daily. atorvastatin (LIPITOR) 80 mg tablet Take 1 tablet by mouth once daily. fluticasone (FLONASE) 50 mcg/actuation nasal spray Use 2 Sprays in each nostril once daily. Psyllium Husk-Aspartame (METAMUCIL SUGAR-FREE, ASPART,) 3.4 gram/5.8 gram powd Take 1 Dose by mouth once daily. lactobacillus comb no.10 (PROBIOTIC) 20 billion cell cap Take 1 capsule by mouth once daily. No current facility-administered medications for this visit. Review of Systems Review of Systems Constitutional: Positive for fatigue. Negative for appetite change, chills, diaphoresis, fever and unexpected weight change. HENT: Negative. Eyes: Negative for visual disturbance. Respiratory: Positive for cough and shortness of breath. Negative for chest tightness and wheezing. Cardiovascular: Positive for leg swelling. Negative for chest pain and palpitations. Gastrointestinal: Negative for abdominal pain, blood in stool, constipation, diarrhea, nausea and vomiting. Genitourinary: Positive for difficulty urinating, frequency and urgency. Negative for flank pain, hematuria and testicular pain. Musculoskeletal: Positive for arthralgias, back pain and gait problem. Skin: Positive for wound. Neurological: Positive for dizziness and headaches. Psychiatric/Behavioral: Positive for dysphoric mood and sleep disturbance. The patient is nervous/anxious. Vital Signs BP 120/76 Pulse 45 Temp 97.8 Resp 20 Ht [Patient refused[ (0.00m) Wt 0 lb (0.0kg) SpO2 (more content not included)... [facility] 11-09-2022 Miscellaneous Notes Patient is informed Lenore Walters MA Addended by: HERMINIA MERAZ on: 11/09/2022 05:16 PM Modules accepted: Orders I sent in a probiotic and fiber supplement to help bulk up his stool. If it is not covered, please tile picker OTC and use them daily. As patient was checking out his mentioned that he has been having diarrhea and nothing OTC has been working. They were wondering if something could be sent in Lenore Walters MA documented in this encounter [facility] 11-09-2022 Instructions Herminia Meraz APRN.CNP - 11/09/2022 4:33 PM EDT [facility], call . Dr. Gomes- Pain management Dr. Arellano Cardiovascular Medicine [address] [address] Directions Appointment:[phone] [place] [address] Outpatient Lab Hours For your convenience, the outpatient laboratory is open during the following hours: Sunday- Sunday 7 a.m. - 4:30 p.m. Sunday: 8 a.m. - 11:45 a.m. The outpatient lab is closed on Sundays and hols. documented in this encounter [facility] 11-09-2022 History of Presen t illness Narrative Images from the original note were not included. [facility] Herminia Meraz APRN-COLETTE [address] [place] [id number] Dept Dept. Visit Date: November 09, 2022 Mr.Joe Padilla Date of : 1960 MRN/E #: [id number] Chief Complaint: Patient presents with: Establish Care History of Present Illness Winnie Padilla is a 62 year old male here as a new patient. I reviewed past medical, surgical, social, and family histories today and updated chart. Allergies, chronic medications, and supplements were also reviewed. His is present with him today who also established care yesterday. PMH of HTN, low back pain, Type 2 DM, chronic foot wounds, HPL. He recently moved to [place] from [place]. Will have to request his records. He has a few concerns to go over today and needs medication refills. Has had a productive cough for the last month Had a cold before the cough No recent fevers Some SOB Was on Oxycodone since 2002 but has been out the last couple weeks and has felt like she was having flu like symptoms, believes it to be from withdrawal symptoms Was following pain management. Needs referral to Wound center 2 ulcers on left foot- left big toe and bottom towards the heel Has had infections in the past Has a callus takes care of his wounds currently Was following with cardiology Has an extra beat in his heart? Has had 2 NJ's- 1 stent in 2007 Cavafilter? Was never told to have it removed and it dislodged and now grown into vena cava? Brain aneurysm in 2002 Did not require surgery Developed DVTs in both legs in 2002 Needs to see urology Difficulty starting stream and leaking Has been on Trulicity for a few years Was able to come off Metformin Severe depression Effexor and Buspar Has been having worsening anxiety recently with all the changes Currently living in a trailer with family The history is provided by the patient and the spouse. No language assistant was used. PAST MEDICAL HISTORY Diagnosis Date Hypertension Low back pain Type 2 diabetes (HCC) PAST SURGICAL HISTORY Procedure Laterality Date REMOVAL GALLBLADDER TRANSV CAROTID STENT PLACEMT Social History Tobacco Use Smoking status: Former Types: Cigarettes Smokeless tobacco: Current Types: Chew Substance Use Topics Alcohol use: Not Currently Drug use: Not Currently Social History Social History Narrative Not on file No family history on file. ALLERGIES No Known Allergies Current Outpatient Medications Medication Sig venlafaxine ER (EFFEXOR XR) 150 mg 24 hr capsule ranolazine ER (RANEXA) 500 mg 12 hr tablet nitroglycerin sublingual (NITROQUICK) 0.4 mg SL tablet TRULICITY 1.5 mg/0.5 mL pen injector amLODIPine (NORVASC) 5 mg tablet amitriptyline (ELAVIL) 50 mg tablet TAKE 1 TABLET BY MOUTH AT BEDTIME FOR 30 DAYS losartan (COZAAR) 100 mg tablet Take 100 mg by mouth once daily. gabapentin (NEURONTIN) 300 mg capsule Take 1 capsule by mouth three times daily for 30 days. naproxen (NAPROSYN) 500 mg tablet Take 1 tablet by mouth twice daily with meals. busPIRone (BUSPAR) 5 mg tablet Take 1 tablet by mouth three times daily. metoprolol tartrate, short acting, (LOPRESSOR) 100 mg tablet Take 0.5 tablets by mouth twice daily. atorvastatin (LIPITOR) 80 mg tablet Take 1 tablet by mouth once daily. fluticasone (FLONASE) 50 mcg/actuation nasal spray Use 2 Sprays in each nostril once daily. Psyllium Husk-Aspartame (METAMUCIL SUGAR-FREE, ASPART,) 3.4 gram/5.8 gram powd Take 1 Dose by mouth once daily. lactobacillus comb no.10 (PROBIOTIC) 20 billion cell cap Take 1 capsule by mouth once daily. No current facility-administered medications for this visit. Review of Systems Review of Systems Constitutional: Positive for fatigue. Negative for appetite change, chills, diaphoresis, fever and unexpected weight change. HENT: Negative. Eyes: Negative for visual disturbance. Respiratory: Positive for cough and shortness of breath. Negative for chest tightness and wheezing. Cardiovascular: Positive for leg swelling. Negative for chest pain and palpitations. Gastrointestinal: Negative for abdominal pain, blood in stool, constipation, diarrhea, nausea and vomiting. Genitourinary: Positive for difficulty urinating, frequency and urgency. Negative for flank pain, hematuria and testicular pain. Musculoskeletal: Positive for arthralgias, back pain and gait problem. Skin: Positive for wound. Neurological: Positive for dizziness and headaches. Psychiatric/Behavioral: Positive for dysphoric mood and sleep disturbance. The patient is nervous/anxious. Vital Signs BP 120/76 Pulse 45 Temp 97.8 Resp 20 Ht [Patient refused[ (0.00m) Wt 0 lb (0.0kg) SpO2 97% Physical Exam Vitals and nursing note reviewed. Constitutional: Comments: Sitting in wheelchair, also has cane with him HENT: Head: Normocephalic. Mouth/Throat: Mouth: Mucous membranes are moist. Pharynx: Oropharynx is clear. Uvula midline. Eyes: Pupils: Pupils are equal, round, and reactive to light. Cardiovascular: Rate and Rhythm: Regular rhythm. Bradycardia present. Pulses: Radial pulses are 2+ on the right side and 2+ on the left side. Heart sounds: Normal heart sounds, S1 normal and S2 normal. Pulmonary: Effort: Pulmonary effort is normal. Breath sounds: Normal breath sounds and air entry. No decreased breath sounds, wheezing, rhonchi or rales. Abdominal: General: Bowel sounds are normal. There is no distension. Palpations: Abdomen is soft. Tenderness: There is no abdominal tenderness. Musculoskeletal: Cervical back: Neck supple. Right lower le+ Edema present. Left lower le+ Edema present. Feet: Comments: ANGEL pedal wounds Skin: General: Skin is warm and dry. Findings: Wound present. Neurological: Mental Status: He is alert and oriented to person, place, and time. Motor: Weakness (b/l lower extremities) present. Gait: Gait abnormal. Psychiatric: Mood and Affect: Affect normal. Mood is anxious. Speech: Speech normal. Behavior: Behavior is cooperative. Cognition and Memory: Cognition normal. Visit Diagnoses (M54.50, G89.29) Chronic midline low back pain without sciatica (primary encounter diagnosis) (I10) Hypertension, essential (E11.9) Type 2 diabetes mellitus without complication, without long-term current use of insulin (HCC) (S91.302A) Wound of left foot (F32.A) Moderately severe depression (F41.9) Anxiety (E78.2) Hyperlipidemia, mixed (E04.9) Thyroid enlargement (R09.82) Postnasal drip (Z12.5) Screening for prostate cancer (Z13.220) Screening for lipid disorders (Z76.89) Encounter to establish care Assessment and Plan 1. Chronic midline low back pain without sciatica - ICD9: 724.2, 338.29, ICD10: M54.50, G89.29 (primary diagnosis) - Will temporarily increase his Gabapentin to 300 mg TID. - Use caution with using Naproxen - CONSULT TO PAIN MGT - GABAPENTIN 300 MG CAPSULE - NAPROXEN 500 MG TABLET 2. Hypertension, essential - ICD9: 401.9, ICD10: I10 - Controlled - Continue current medications - Recommend home blood pressure monitoring, to bring results to next visit - Encouraged sodium restriction, DASH or Mediterranean diet - Recommend regular aerobic exercise - CONSULT TO CARDIOLOGY - CBC - COMP METABOLIC PANEL - METOPROLOL TARTRATE 100 MG TABLET 3. Type 2 diabetes mellitus without complication, without long-term current use of insulin (HCC) - ICD9: 250.00, ICD10: E11.9 - Control undetermined, due for labs - Continue current medications - Statin prescribed - atorvastatin - Discussed need for and benefit of weight loss. BMI 0 kg/(m^2) - Follow up in 3 months, sooner should any other issues arise. - HGB A1C 4. Wound of left foot - ICD9: 892.0, ICD10: S91.302A - CONSULT TO WOUND CENTER (AG) 5. Moderately severe depression - ICD9: 311, ICD10: F32.A - Increasing frequency to 5 mg TID - F/U is symptoms persist or worsen - BUSPIRONE 5 MG TABLET 6. Anxiety - ICD9: 300.00, ICD10: F41.9 - Increasing frequency of Buspar to 5 mg TID 7. Hyperlipidemia, mixed - ICD9: 272.2, ICD10: E78.2 - Continue current medications - Counseled on healthy diet and regular exercise - Follow up in 3 months, sooner should any other issues arise. - ATORVASTATIN 80 MG TABLET 8. Thyroid enlargement - ICD9: 240.9, ICD10: E04.9 - Will review previous PCP records to see if he has an US recently - TSH BLD - T4 FREE/FREE THYROX - T3 BLD 9. Postnasal drip - ICD9: 784.91, ICD10: R09.82 - Possibly contributing to acute cough - FLUTICASONE PROPIONATE 50 MCG/ACTUATION NASAL SPRAY,SUSPENSION 10. Screening for prostate cancer - ICD9: V76.44, ICD10: Z12.5 - Risks/benefits of prostate cancer screening discussed. screening PSA ordered - PSA/PROSTSPECAG SCRN 11. Screening for lipid disorders - ICD9: V77.91, ICD10: Z13.220 - LIPID PANEL BASIC 12. Encounter to establish care - ICD9: V65.8, ICD10: Z76.89 - Request previous records to review Discussed above plan with patient and/or caregiver. Patient and/or caregiver agreeable with above plan. Follow up visit Return for TBD. Herminia Meraz APRN.CNP, signed on November 09, 2022 4:19 PM documented in this encounter [facility] [place] [facility]* Diagnosis Chronic midline low back pain without sciatica- Primary Hypertension, essential Unspecified essential hypertension Type 2 diabetes mellitus without complication, without long-term current use of insulin (HCC) Wound of left foot Moderately severe depression Anxiety Anxiety state, unspecified Hyperlipidemia, mixed Mixed hyperlipidemia Thyroid enlargement Goiter, unspecified Postnasal drip Screening for prostate cancer Special screening for malignant neoplasm of prostate Screening for lipid disorders Encounter to establish care Other reasons for seeking consultation [facility]* Diagnosis Stable angina (HCC)- Primary Other and unspecified angina pectoris [facility] [place] [facility]* Diagnosis Stable angina (HCC) Other and unspecified angina pectoris [facility] [place] [facility]* Diagnosis Stasis dermatitis of both legs- Primary Varicose veins of lower extremities with inflammation Wound of left foot [facility] [place] [facility]* Diagnosis Vitamin D deficiency- Primary Unspecified vitamin D deficiency [facility] [place] [facility]* Diagnosis Diabetic ulcer of left midfoot associated with diabetes mellitus due to underlying condition, with other ulcer severity (HCC) [facility] ([facility]ative[facility] Diagnostic Procedure Only (Routine) - Closed Specialty Diagnoses / Procedures Referred By Carli cook Referred To Contact XR IMAGING Diagnoses Diabetic ulcer of left midfoot associated with diabetes mellitus due to underlying condition, with other ulcer severity (HCC) Procedures XR FOOT GENERAL 3V AP/LAT/OBL LEFT RADEX FOOT COMPLETE MINIMUM 3 VIEWS Devan Foster [address] [place] [address] [place] [address] Referral ID Status Reason Start Date Expiration Date V isits Requested Visits Authorized [id number] Closed Auto-Generate d Referral 01/22/2023 02/21/2024 1 1 [facility]* Diagnostic Procedure Only (Routine) - Closed Specialty Diagnoses / Procedures Referred By Contac t Referred To Contact XR IMAGING Diagnoses Diabetic ulcer of left midfoot associated with diabetes mellitus due to underlying condition, with other ulcer severity (HCC) Procedures XR FOOT GENERAL 3V AP/LAT/OBL LEFT RADEX FOOT COMPLETE MINIMUM 3 VIEWS Devan Foster [address] [place] [address] [place] [address] Referral ID Status Reason Start Date Expiration Date V isits Requested Visits Authorized [id number] Closed Auto-Generate d Referral 01/22/2023 02/21/2024 1 1 [facility] Reason for Referral Specialty Diagnoses / Procedures Referred By Carli t Referred To Contact Diagnoses Wound of left foot Procedures CONSULT TO WOUND CENTER (AG) Herminia Meraz APRN.DRUG ABUSE COUNSELOR [address] [place] [address] [place] [address] Referral ID Status Reason Start Date Expiration Date Visits Requested Visits Authorized [id number] Ref Not Required PCP Requested Referral 11/09/2022 02/07/2023 1 1 Specialty Diagnoses / Procedures Referred By Contac t Referred To Contact Diagnoses Chronic midline low back pain without sciatica Procedures CONSULT TO PAIN MGT Herminia Meraz APRN.DRUG ABUSE COUNSELOR [address] [place] [address] [facility] - Medical Office Building [address] [place] [id number] Referral ID Status Reason Start Date Expiration Date Visits Requested Visits Authorized [id number] Ref Not Required PCP Requested Referral 11/09/2022 11/09/2023 1 1 Specialty Diagnoses / Procedures Referred By Contac t Referred To Contact Cardiology Diagnoses Hypertension, essential Procedures CONSULT TO CARDIOLOGY OFFICE/OUTPATIENT [facility] 60-74 MINUTES Herminia Meraz APRN.DRUG ABUSE COUNSELOR [address] [place] [address] Gaston Arellano MD [address] [place] [address] Referral ID Status Reason Start Date Expiration Date Visits Requested Visits Authorized [id number] Pending Review PCP Requested Referral 11/09/2022 11/09/2023 1 1 Specialty Diagnoses / Procedures Referred By Carli cook Referred To Contact Podiatry Diagnoses Stasis dermatitis of both legs Wound of left foot Procedures CONSULT TO PODIATRY OFFICE/OUTPATIENT [facility] 60-74 MINUTES Romero Rhoades MD [address] [place] [address] Referral ID Status Reason Start Date Expiration Date Visits Requested Visits Authorized [id number] Pending Review PCP Requested Referral 01/16/2023 01/16/2024 1 1 Summary Purpose Family History No Family History Records FoundNo Family History Records Found Advance Directives No Advanced Directives Records FoundNo Advanced Directives Records Found Additional Source Comments Source Comments (unrecognize d section and content) In the event this informatio n is protected by the Federal Confidentiality of Alcohol and Drug Abuse Patient Records regulations: The Federal rules restrict any use of the information to criminally investigate or prosecute any alcohol or drug abuse patient.[facility] the event this information is protected by the Federal Confidentiality of Alcohol and Drug Abuse Patient Records regulations: The Federal rules restrict any use of the information to criminally investigate or prosecute any alcohol or drug abuse patient.[facility] the event this information is protected by the Federal Confidentiality of Alcohol and Drug Abuse Patient Records regulations: The Federal rules restrict any use of the information to criminally investigate or prosecute any alcohol or drug abuse patient.[facility] the event this information is protected by the Federal Confidentiality of Alcohol and Drug Abuse Patient Records regulations: The Federal rules restrict any use of the information to criminally investigate or prosecute any alcohol or drug abuse patient.[facility] the event this information is protected by the Federal Confidentiality of Alcohol and Drug Abuse Patient Records regulations: The Federal rules restrict any use of the information to criminally investigate or prosecute any alcohol or drug abuse patient.[facility] the event this information is protected by the Federal Confidentiality of Alcohol and Drug Abuse Patient Records regulations: The Federal rules restrict any use of the information to criminally investigate or prosecute any alcohol or drug abuse patient.[facility] the event this information is protected by the Federal Confidentiality of Alcohol and Drug Abuse Patient Records regulations: The Federal rules restrict any use of the information to criminally investigate or prosecute any alcohol or drug abuse patient.[facility] the event this information is protected by the Federal Confidentiality of Alcohol and Drug Abuse Patient Records regulations: The Federal rules restrict any use of the information to criminally investigate or prosecute any alcohol or drug abuse patient.[facility] the event this information is protected by the Federal Confidentiality of Alcohol and Drug Abuse Patient Records regulations: The Federal rules restrict any use of the information to criminally investigate or prosecute any alcohol or drug abuse patient.[facility] the event this information is protected by the Federal Confidentiality of Alcohol and Drug Abuse Patient Records regulations: The Federal rules restrict any use of the information to criminally investigate or prosecute any alcohol or drug abuse patient.[facility] the event this information is protected by the Federal Confidentiality of Alcohol and Drug Abuse Patient Records regulations: The Federal rules restrict any use of the information to criminally investigate or prosecute any alcohol or drug abuse patient.[facility] Reason for Visit (unrecogniz ed section and content) Reason Comments Appointment Reason Comments Establish Care Reason Comments New Patient Reason Onset Date Comments Refill Request 11/22/2022 Reason Comments [facility] Put referral for car diology on [facility] Reason Comments Results Reason Comments Patient Question Reason Comments 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 Reason Comments entered in error Care Teams (unrecognized sec tion and content) Nuclear Medicine Tech Relationship Specialty Start Date End Date Romero Rhoades MD [address] [place], [place] [id number] PCP - General Family Medicine 11/07/22 Nuclear Medicine Tech Relationship Specialty Start Date End Date Romero Rhoades MD [address] [place], [place] [id number] PCP - General Family Medicine 11/07/22 Nuclear Medicine Tech Relationship Specialty Start Date End Date Romero Rhoades MD [address] [place], [place] [id number] PCP - General Family Medicine 11/07/22 Nuclear Medicine Tech Relationship Specialty Start Date End Date Herminia Meraz APRN.DRUG ABUSE COUNSELOR [address] [place] [address] PCP - General Family Medicine 11/22/22 Nuclear Medicine Tech Relationship Specialty Start Date End Date Romero Rhoades MD [address] [place], [place] [id number] PCP - General Family Medicine 11/07/22 11/21/22 Herminia Meraz, VP INFORMATICS.DRUG ABUSE COUNSELOR [address] [place] [address] PCP - General Family Medicine 11/22/22 Nuclear Medicine Tech Relationship Specialty Start Date End Date Herminia Meraz, VP INFORMATICS.DRUG ABUSE COUNSELOR [address] [place] [address] PCP - General Family Medicine 11/22/22 Nuclear Medicine Tech Relationship Specialty Start Date End Date Herminia Meraz, VP INFORMATICS.DRUG ABUSE COUNSELOR [address] [place] [address] PCP - General Family Medicine 11/22/22 Nuclear Medicine Tech Relationship Specialty Start Date End Date Romero Rhoades MD [address] [place] [address] PCP - General Family Medicine 01/05/23 Darrick Gomes MD [address] [place] [address] Pain Management Anesthesiology 01/10/23 Ellie BAUTISTA , [facility] [place], [place] [address] Podiatry 01/10/23 Nuclear Medicine Tech Relationship Specialty Start Date End Date Romero Rhoades MD [address] [place], [place] [address] PCP - General Family Medicine 01/05/23 Darrick Gomes MD [address] [place], [place] [id number] Pain Management Anesthesiology 01/10/23 Ellie HICKMANL , [address] [place], [place] [address] Podiatry 01/10/23 Nuclear Medicine Tech Relationship Specialty Start Date End Date Romero Rhoades MD [address] [place], [place] [address] PCP - General Family Medicine 01/05/23 Darrick Gomes MD [address] [place], [place] [id number] Pain Management Anesthesiology 01/10/23 [facility] [address] [place], [place] [id number] Podiatry 01/10/23 (unrecognized sect ion and content) No Status Records FoundNo Status Records Found INFORMATION SOURCE (unrecogn ized section and content) DATE CREATED AUTHOR AUTHOR'S ORGANIZ ATION 04/29/2023 [facility] FOR RECORDS PERTAINING TO PATIENTS WHO ARE OR HAVE BEEN ENROLLED IN A CHEMICAL DEPENDENCY/SUBSTANCEABUSE PROGRAM, SOME INFORMATION MAY BE OMITTED. This clinical summary was aggregated from multiple sources. Caution should be exercised in using it in the provision of clinical care. This summary normalizes information from multiple sources, and as a consequence, information in this document may materially change the coding, format and clinical context of patient data. In addition, data may be omitted in some cases. CLINICAL DECISIONS SHOULD BE BASED ON THE PRIMARY CLINICAL RECORDS. [employer] provides no warranty or guarantee of the accuracy or completeness of information in this document.
[2023-04-29 20:07] LABS: Absolute Lymphocyte Count 1.86 X10^3/uL (0.83-4.51); Absolute Neutrophil Count 8.9 X10^3/uL (2.0-7.7); Basophil% 0.8 % (0-1); Eosinophil# 0.27 X10^3/uL; Eosinophils% 2.2 % (0-5); Hematocrit 31.8 % (40-54); Hemoglobin 10.8 g/dL (13.0-16.5); Lymphocyte # 1.86 X10^3/ul (0.83-4.51); Lymphocyte % 14.8 % (19-41); Mean Corpuscular Hgb 31.8 pg (27.0-32.0); Mean Corpuscular Volume 93.5 fL (80-94); Mean Platelet Vol. 12.2 fl (6.2-12.0); Monocyte# 1.37 X10^3/uL; Monocyte% 10.9 % (0-10); NRBC Flagged by Analyzer 0 % (0-5); Neutrophil # 8.88 X10^3/uL (2.7-7.7); Neutrophil % 70.9 % (47-70); Platelet Count 134 K/mm3 (150-450); RBC Distribution Width CV 13.4 % (11.6-14.6); RBC Distribution Width SD 45.9 fl (35.1-43.9); White Blood Count 12.5 K/mm3 (4.4-11.0)
[2023-04-29 20:17] LABS: Bacteria 0 SEEN /hpf (None Seen); Mucous, Urine 0 SEEN /hpf (<or=2+); Squamous Epithelial Cells - UA 0 SEEN /hpf (0-5)
[2023-04-29 20:19] LABS: Color, Urine Yellow (Yellow); Glucose, Dipstick 100 mg/dl (Normal); Ketone-Dipstick Negative (Negative); Leukocyte Esterase-Dipstick Negative /ul (Negative); Nitrite-Dipstick Negative (Negative); Occult Blood-Urine 25 /ul (Negative); Protein-Dipstick 500 mg/dl (Negative); Specific Gravity, Urine 1.015 (1.002-1.030); Urine Bilirubin Dipstick Negative (Negative); Urine Clarity Clear (Clear); Urine Urobilinogen Normal (Normal); Urine pH 6.5 (5.0 - 8.0)
[2023-04-29 20:26] LABS: AST(SGOT) 23 U/L (15-37); Alanine Aminotransfer ALT/SGPT 18 U/L (16-61); Albumin, Serum 2.8 g/dL (3.2-5.0); Alkaline Phosphatase 79 U/L (45-117); Anion Gap 10 (5-15); BUN 51 mg/dL (7-18); Bilirubin, Direct 0.12 mg/dL (0.00-0.30); Chloride 106 mmol/L (98-107); Creatinine, Serum 2.84 mg/dL (0.70-1.30); EST Glomerular Filtration Rate 24 mL/min (>60); Est Glom Filt Rate - Afr Amer 29 mL/min (>60); Estimated Creatinine Clearance 26.62 ml/min; Globulin 7.2 g/dL (2.2-4.2); Glucose 140 mg/dL (74-106); Potassium 5.3 mmol/L (3.5-5.1); Sodium Level 137 mmol/L (136-145)
[2023-04-29 20:28] LABS: Urine Sodium 65 mmol/L (Not Establ.)
[2023-04-29 20:29] LABS: Red Blood Cells-Urine 0-5 SEEN /hpf (0-5); White Blood Cells 0-5 SEEN /hpf (0-5)
[2023-04-29 20:51] VITALS: BP 171/87
--- NOTE | 2023-04-29 21:12 | PCM.HP.STD ---
HPI - General General Date of Admission: 04/29/23 Date of Service: 04/29/23 Chief Complaint: abnormal lab HPI Narrative WINNIE MOORE, is a 63 M with a PMH as outlined who presents via the ED on 04/29/2023 with a complaint of abnormal labs. He recently moved to [place] from [place] about 6 months ago and established with a PCP. He saw the PCP ~ 1 week ago and had bloodwork done. He was called to come to the ED due to abnormal renal function. Cr per the bloodwork done on outpatient basis was 2.91. He denies any history or renal impairment, and denies and denies any difficulty urinating or history of kidney stones. He denies any herbal medication intake and review of systems is otherwise negative. He says he was told in [place] that his renal function wasnt where it was supposed to be, but didnt remember any actual numbers. Vitals in the ED were BP of 171/81, temp of 96.9F, NM of 66 and RR of 15; he was staurting at 100% on room air. CBC showed hb of 10.8, wbc of 12.5, platelets of 134. Chemsitry showed sodium of 137, potassium of 5.3 and Cr of 2.84, no baseline Cr known. Urinalysis showed protein of 500 but was otherwise unremarkable. He is being admitted to be managed for ROSALBA vs probable CKD. [facility] Medical History Brain aneurysm Chronic anticoagulation Coronary artery disease Degenerative joint disease of left hip Diabetes mellitus Diabetic ulcer of left foot Diabetic ulcer of left great toe DVT (deep venous thrombosis) Hypertension Pulmonary embolism Home Medications amitriptyline 50 mg tablet 50 mg PO QHS SLEEP 04/29/23 [History Last Taken Unknown] amlodipine 5 mg tablet 5 mg PO DAILY BP 04/29/23 [History Last Taken Unknown] atorvastatin 80 mg tablet 80 mg PO QHS HYPERLIPIDEMIA 04/29/23 [History Last Taken Unknown] buspirone 5 mg tablet 5 mg PO TID anxiety 04/29/23 [History Last Taken 04/29/23] dulaglutide 1.5 mg/0.5 mL subcutaneous pen injector (Trulicity) 1.5 mg subcut QWEEK diabetes 04/29/23 [History Last Taken Unknown] gabapentin 300 mg capsule 300 mg PO Q12H neuropathy 04/29/23 [History Last Taken Unknown] losartan 100 mg tablet 100 mg PO DAILY hypertension 04/29/23 [History Last Taken 04/29/23] metoprolol tartrate 100 mg tablet 100 mg PO Q12H heart rate and blood pressure 04/29/23 [History Last Taken 04/29/23] naproxen 500 mg tablet 500 mg PO Q12H PRN pain 04/29/23 [History Last Taken 04/29/23] nitroglycerin 0.4 mg sublingual tablet 0.4 mg sublingual Q5M PRN chest pain 04/29/23 [History Last Taken Unknown] oxycodone myristate 13.5 mg capsule sprinkle extend release 12hr(DON'T CRUSH) (Xtampza ER) 13.5 mg PO Q12H lower extremity pain 04/29/23 [History Last Taken Unknown] ranolazine 500 mg tablet,extended release,12 hr 500 mg PO Q12H chest pain 04/29/23 [History Last Taken 04/29/23] rivaroxaban 20 mg PO DAILY 04/29/23 [History Last Taken 04/29/23] venlafaxine 150 mg capsule,extended release 24 hr 150 mg PO DAILY depression 04/29/23 [History Last Taken 04/29/23] venlafaxine 75 mg capsule,extended release 24 hr 75 mg PO DAILY depression 04/29/23 [History Last Taken 04/29/23] Allergy/AdvReac Type Severity Reaction Status Date / Time No Known Allergies Allergy Verified 04/29/23 19:28 Surgical History H/O superior vena cava filter placement History of cholecystectomy Social History (Updated 04/29/23 @ 21:[address] Sujit Hughes, DO) Smoking Status: Current every day smoker tobacco type: cigarettes Smokeless tobacco user: chewing tobacco ROS Review of Systems ROS Unobtainable: Denies due to encephalopathy Constitutional Constitutional: Denies anorexia, chills, fatigue, fever(s), malaise or weakness Eyes Eyes: Denies change in vision ENT HEENT: Denies dysphagia or headache(s) Cardiovascular Cardiovascular: Denies chest pain, edema, orthopnea or palpitations Respiratory/Chest Respiratory/Chest: Denies cough, shortness of breath at rest, shortness of breath with exertion or wheezing Gastrointestinal Gastrointestinal: Denies constipation, diarrhea, nausea or vomiting Genitourinary Genitourinary: Denies dysuria Musculoskeletal Musculoskeletal: Denies back pain or joint pain Neurologic Neurologic: Denies confusion, dizziness, focal weakness, headache(s), numbness or seizures Psychiatric Psychiatric: Denies anxiety or depression Endocrine Endocrinology: Denies change in body appearance Vital Signs Vital Signs Vital Signs: 04/29/23 19:01 04/29/23 20:32 04/29/23 20:51 Temperature 96.9 F L Temperature Source Temporal Pulse Rate 66 Respiratory Rate 15 Respiratory Effort Normal Respiratory Pattern Normal Blood Pressure 155/85 H 171/87 H Blood Pressure Mean 108 115 Pulse Ox 100 Oxygen Delivery Method Room Air Weight Weight: 185 lb Body Mass Index (BMI) 27.3 Physical Exam Const alert, oriented x3 and no apparent distress General Appearance: cooperative and well developed HEENT normocephalic, head/scalp atraumatic and moist oral mucous membranes Eyes PERRL and EOMs intact bilaterally Neck no lymphadenopathy, supple and no JVD Lymph Lymphatic: no lymphadenopathy noted and no lymphedema noted Resp normal respiratory effort, normal air movement and clear to auscultation bilaterally Cardio regular rate, regular rhythm, S1 normal heart sound, S2 normal heart sound and no murmurs Palpation: normal PMI GI normal to inspection, nondistended, normoactive bowel sounds, soft to palpation and non-tender Palpation: no hepatosplenomegaly Extremity normal capillary refill, no clubbing, cyanosis or edema and no calf tenderness General Extremity: no tenderness to palpation of joints or extremities Skin General Skin Exam: no breakdown Lesions: no lesions Neuro CN's II-XII intact bilaterally, no focal motor deficits and no sensory deficits noted Motor Exam: strength 5/5 throughout and general weakness Psych thought process normal and cooperative Appearance: appropriate Results Lab / Micro Data 04/29/23 19:55 04/29/23 19:55 Labs: Laboratory Results - last 24 hr 04/29/23 19:55: WBC 12.5 H, RBC 3.40 L, Hgb 10.8 L, Hct 31.8 L, MCV 93.5, MCH 31.8, MCHC 34.0, RDW Std Deviation 45.9 H, RDW Coeff of Padmaja 13.4, Plt Count 134 L, MPV 12.2 H, Immature Gran % (Auto) 0.400, Neut % (Auto) 70.9 H, Lymph % (Auto) 14.8 L, Blount % (Auto) 10.9 H, Eos % (Auto) 2.2, Baso % (Auto) 0.8, Absolute Neuts (auto) 8.9 H, Absolute Lymphs (auto) 1.86, Nucleated RBC % 0, Sodium 137, Potassium 5.3 H, Chloride 106, Carbon Dioxide 21.0, Anion Gap 10, BUN 51 H, Creatinine 2.84 H, Estim Creat Clear Calc 26.62, Est GFR (MDRD) Af Amer 29 L, Est GFR (MDRD) Non-Af 24 L, BUN/Creatinine Ratio 18.0, Glucose 140 H, Calcium 9.0, Total Bilirubin 0.70, Direct Bilirubin 0.12, AST 23, ALT 18, Alkaline Phosphatase 79, Total Protein 10.0 H, Albumin 2.8 L, Globulin 7.2 H 04/29/23 20:09: Urine Color Yellow, Urine Clarity Clear, Urine pH 6.5, Ur Specific [place] 1.015, Urine Protein 500 H, Urine Glucose (UA) 100 H, Urine Ketones Negative, Urine Occult Blood 25 H, Urine Nitrite Negative, Urine Bilirubin Negative, Urine Urobilinogen Normal, Ur Leukocyte Esterase Negative, Urine RBC 0-5 SEEN, Urine WBC 0-5 SEEN, Ur Squamous Epith Cells 0 SEEN, Urine Bacteria 0 SEEN, Urine Mucus 0 SEEN, Ur Random Sodium 65, Urine Creatinine 45.60 Assessment & Plan Assessment/Plan (1) ROSALBA (acute kidney injury): (2) Hyperkalemia: PLAN: Plan #ROSALBA vs CKD admit to med surg Cr is 2.83, with no known baseline. Patient denies any abdominal pain, difficulty urinating or any other symptoms. potassium is also 5.3 hold all diuretics and nephrotoxic meds. Hydrate gently with iVF NS @150cc/hr get renal USG check FeUrea give sodium kayexalate. in light of patient's history of diabetes, I am more inclined to think this is CKD instead of ROSALBA, but will awiat renal USG. He also says he was told in [place] by his PCP that his kidney numbers were not where they were supposed to be , but he doesnt recall any particular numbers. request records from his hospital and PCP in [place] #Hypertension; on amlodipine. Hold losartan. Continue metoprolol. IV hydralazine prn BP elevated at 171/87 #Type 2 diabetes mellitus: on dulaglutide. ISS. Accuchecks ACHS DVT prophylaxis; SCDs Code status: full code Patient counseled extensively about different types of CODE STATUS including full code, DNR CCA and DNR CCA. Patient elects to be full code. Total [id number] time 16 minutes. Total time spent on evaluation and management of patient, reviewing chart and specialist notes, discussing plan with patient, discussion with nursing and ancillary staff as well as documentation: 52 mins Charges/Coding Visit Charges Inpatient E&M: 47410 Init Hosp L2 Procedures Hospitalists Procedures: 38300 Advncd Care Plan 30 Min
[2023-04-29] MEDS: LORazepam 0.5 MG Tablet PO (21:28)
[2023-04-29 21:32] VITALS: PULSE 69; RESP 16; TEMP 36.6; O2SAT 99
--- OUTSIDE RECORDS SUMMARY | 2023-04-29 21:48 | XMS RPT_ITS | CCD ---
Author Name Unknown Address [address] [place] [address] Organization [facility] Care Team Providers Care Sap Data Analyst Name Role Phone Romero Rhoades MD Primary Care Provider Herminia Meraz APRN.CNP Primary Care Provider HERMINIA MERAZ Attending Unavailable ROMERO HROADES Primary Care UnavailRomero Brunson MD Primary Care Provider Darrick Gomes MD Unavailable [phone] Ellie Unavailable DEVAN FOSTER Attending Unavailable ROMERO [...] 16:15-0400 Body temperature 97.81 [degF] Herminia Queden ANALYST.SENIOR HEALTH EDUCATOR Work Phone: [facility] 11-09-2022 16:15-0400 Diastolic blood pressure 76 mm[Hg] Herminia Queden ANALYST.SENIOR HEALTH EDUCATOR Work Phone: [facility] 11-09-2022 16:15-0400 Heart rate 45 /min Herminia Queden ANALYST.SENIOR HEALTH EDUCATOR Work Phone: [facility] 11-09-2022 16:15-0400 Respiratory rate 20 /min Herminia Queden ANALYST.SENIOR HEALTH EDUCATOR Work Phone: [facility] 11-09-2022 16:15-0400 SaO2% (BldA) [Mass fraction] 97 % Herminia Queden ANALYST.SENIOR HEALTH EDUCATOR Work Phone: [facility] 11-09-2022 16:15-0400 Systolic blood pressure 120 mm[Hg] Herminia Queden ANALYST.SENIOR HEALTH EDUCATOR Work Phone: [facility] Encounters Encounter Date Encounter Type Care Provider Facility Start: 04-24-2023 End: 04-25-2023 ambulatory ROMERO RHOADES Facility:[facility] Start: 04-24-2023 End: 04-25-2023 ambulatory ROMERO RHOADES Facility:[facility] Start: 04-17-2023 End: 04-17-2023 ambulatory DEVAN FOSTER Facility:[facility] Start: 03-16-2023 End: 03-16-2023 ambulatory [facility] Facility:[facility] Start: 01-22-2023 End: 01-22-2023 ambulatory [facility] Facility:[facility] Start: 01-22-2023 End: 01-22-2023 ambulatory [facility] Facility:[facility] Start: 01-22-2023 End: 01-22-2023 Subsequent hospital visit by physician Jimmy [facility] Cruz Chau Work Phone: Radiology Procedures Date Procedure Procedure Detail Performing Clinician Start: 01-22-2023 Radex foot complete minimum 3 views Devan Lomaxlena Work Phone: Plan of Treatment Date Care Activity Detail Author Start: 01-11-2024 Annual PCP Team Informatics Developer marivel Disease Visit Annual PCP Team Chronic Disease Visit [facility] Start: 01-11-2024 Hepatitis B Vaccine (1 of 3 - Risk 3-dose series) Hepatitis B Vaccine (1 of 3 - Risk 3-dose series) [facility] Immunizations Immunization Date Immunization Notes Care Provider Fa cility 01-10-2023 influenza, injectabl e, quadrivalent, contains preservative Romero Rhoades MD Work Phone: [facility] 03-16-2022 COVID-19 original vaccine, full dose, monovalent (MODERNA) Romero Rhoades MD Work Phone: [facility] 04-22-2021 COVID-19 original vaccine, full dose, monovalent (MODERNA) Romero Rhoades MD Work Phone: [facility] 08-02-2020 COVID-19 original vaccine, full dose, monovalent (MODERNA) Romero Rhoades MD Work Phone: [facility] 07-05-2020 COVID-19 original vaccine, full dose, monovalent (MODERNA) Romero Rhoades MD Work Phone: [facility] 07-05-2020 COVID-19 vaccine, ag e 12+ yr, bivalent (MODERNA) Romero Rhoades MD Work Phone: [facility] Payers Date Payer Category Payer Medicare HU[employer]NA MEDICARE HU[employer]NA GOLD PLUS [id number] 2019-Present [id number] [place] [id number] O [id number] 2019 Private Health Insurance [id number] Social History Date Type Detail Facility Start: 11-09-2022 [facility] History of tobacco use Current smoker [facility] History of tobacco use Cigarette Smoker [facility] Start: 11-09-2022 End: 01-22-2023 Tobacco use and exposure User of smokeless tobacco [facility] tobacco use [facility] Start: 11-09-2022 End: 01-22-2023 Alcohol intake Ex-drinker (finding) [facility] Start: 11-09-2022 End: 01-10-2023 History of Social function [facility] Work Phone: Start: 11-09-2022 End: 01-10-2023 Tobacco use panel [facility] Work Phone: National Score (1-100), lower number is lower risk [address] [facility] Work Phone: Start: 1960 Sex Assigned At Not on file C [facility] Start: 01-10-2023 End: 01-22-2023 Tobacco smoking status NHIS Smokes tobacco daily [facility] Work Phone: Start: 01-10-2023 Tobacco Comment Used to smoke 1/2 pack per day. Chewing 1 can per week. [facility] Start: 01-22-2023 Tobacco Comment Used to smoke 3 per day. Chewing 1 can per week. [facility] Clinical Notes 11-09-2022 to 04-19-2023 Neli Sultana, RT(R) - 01/22/2023 10:30 AM EDTTelephone Encounter - Gricelda Goodwin LPN - 01/19/2023 2:41 PM EDTTelephone Encounter - Devan Foster - 01/19/2023 1:37 PM EDTPatient Instructions Note Date & Type Note Facility 04-19-2023 Note HNO ID: [id number] Author: DEVAN FOSTER, ? Service: ? Author [...] disease) stent x1 CHF (congestive heart failure) ([facility]) Patient reports EF 45% Chronic leg pain [...] or for this visit). Devan Foster DPM [facility] 04-17-2023 Note HNO ID: [id number] Author: ARON FOWLER RN Service: ? Author Type: Registered Nurse Type: Progress Notes Filed: 04/19/2023 07:22 Note Text: [facility] 01-22-2023 Note HNO ID: [id number] Author: Gricelda Goodwin LPN Service: ? Author [...] filled out and faxed. Gricelda Goodwin LPN [facility] 01-22-2023 Note HNO ID: [id number] Author: Neli Sultana RT(R) Service: ? Author [...] RT Mary(R) January 22, 2023 10:55 AM [facility] 01-22-2023 Note HNO ID: [id number] Author: Devan Foster Service: ? Author Type: [...] He has been seen by podiatry in [place] who has proposed possible ANGELITO and also ivanna osteotomy of the 3rd metatarsal but this has never been done. He moved to [place] recently to be closer with his family. He recently saw DR. Argueta in [place] [facility] but he had falling [...] disease) stent x1 CHF (congestive heart failure) ([facility]) Patient reports EF 45% Chronic leg pain Dr. Gomes Chronic lower back pain Dr. Gomes History of DVT (deep vein thrombosis) Hyperlipidemia Hypertension Moderately severe depression Myocardial infarction ([facility]) x2 OA (osteoarthritis) of hip left Overweight (BMI 25.0-29.9) Presence of IVC filter Stasis dermatitis of both legs Thyroid enlargement Tobacco use disorder Type 2 diabetes ([facility]) Wound of left lower extremity Dr. Argueta [...] in bowel habits (more content not included)... [facility] 01-22-2023 Note HNO ID: [id number] Author: Gricelda Goodwin LPN Service: ? Author Type: LICENSED NURSE Type: Progress Notes Filed: 01/23/2023 12:48 PM Note Text: AMB ROOMING INTAKE FLOWSHEET DATA Pain Pain Level: 8 Pain Location: Foot-Left Description: Sore Duration Amount of Time: 5 Duration Units: Years Frequency: Continuous Intervention/Comfort measure: Reposition, Relaxation Patient presents with: Left Foot - Ulcer, Callous, New, Pain Gricelda Goodwin LPN [facility] 01-22-2023 History of Presen t illness Narrative [...] 2023 10:55 AM documented in this encounter [facility] 01-19-2023 Miscellaneous Notes Entered in Error. Gricelda Goodwin LPN Order for vitamin d made Devan Foster DPM documented in this encounter 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 He just wondered if we could make it an urgent referral so he can get in sooner. I can put in a referral for [facility] podiatry Dr. Foster. Is he having symptoms he would need evaluated in the ER for? Worsening wound, spreading redness, drainage, streaking, or fever? Pt requesting an urgent referral to a junior high school teacher (within the next week). He and the current junior high school teacher he was seeing having not been seeing eye to eye. He last saw that junior high school teacher a couple of weeks ago. Per Dr. Rhoades last OV in [facility]: Patient following up with Dr. Argueta [...] to someone soon. documented in this encounter [facility] 01-10-2023 Note HNO ID: [id number] Author: Romero Rhoades MD Service: ? Author Type: Physician Type: Progress Notes Filed: 01/11/2023 10:01 AM Note Text: Chief Complaint Patient presents with: Establish Care HPI Winnie Padilla is a 62 year old male who presents here today for Above Complaints. Previous PCP was in [place] [facility] with last OV about 4-5 months [...] disease) stent x1 CHF (congestive heart failure) ([facility]) Patient reports EF 45% Chronic leg pain [...] every 5 minut (more content not included)... [facility] 12-25-2022 Miscellaneous Notes Patient notified. Coty Joy [...] Lenore Walters MA documented in this encounter [facility] 12-20-2022 Miscellaneous Notes Patient returned call and given provider's message below and patient verbalized understanding. Heri Mcconnell RN Unable to reach patient. Mailbox full/Mailbox not set up/ Number incorrect. Please try again later. Neli Bocanegra Bacterial infection noted on wound culture. Continue antibiotics as prescribed. Follow-up with PCP if symptoms are not improving. Luis Hill APRN.COLETTE documented in this encounter [facility] 12-17-2022 Note HNO ID: [id number] Author: Darby Angel APRN.COLETTE Service: ? Author Type: Nurse Practitioner Type: Progress Notes Filed: 12/17/2022 11:18 AM Note Text: This note was created using [employer]ter. Subjective Winnie Padilla is a 62 year [...] note patient has recently moved here from [place]. Established with Herminia Meraz, where a wound [...] TO SKIN CARE TEAM E Daisha [employer] ADULT NURSE PRACTITIONER Student TEACHING PROVIDER (Physician/PA/ANALYST) NOTE OF PERSONAL INVOLVEMENT IN CARE: I have personally seen and examined the patient and performed the medical decision-making components. I have reviewed the Advanced Practice Registered Nurse (ANALYST) Student's documentation and verified the findings in the note as written. Any additions or changes are noted in bold/italics. Signature: Darby Angel Date: 12/17/2022 Time: 11:17 AM [facility] 11-22-2022 Miscellaneous Notes patient phones requesting refills as follows: Last seen 11/09/22 . Last refill previous pcp . Requested Prescriptions Pending Prescriptions Disp Refills nitroglycerin sublingual (NITROQUICK) 0.4 mg SL tablet Please review and advise. Rochelle Stanley MA documented in this encounter [facility] 11-21-2022 Miscellaneous Notes Received a referral from Herminia Meraz APRN.SENIOR HEALTH EDUCATOR for a New Patient for CONSULT TO PAIN MGT Please call and schedule patient. Isauro De La [place] to Dr. Ventura, Disha Briggs PA-C, Workers Compensation [facility] P: [id number] / F: [phone] / [email or web address] documented in this encounter [facility] 11-10-2022 Miscellaneous Notes Put referral for Cardiology with Dr Yates on [facility] 11/10/22 Confirmation # [id number] CRUSSELL1 11/10/22 08:57 CR// 11/10/2022// I called and LVM scheduled Pt. 02/01/2023 at 9:20 w/ Dr. Arellano in [place]. documented in this encounter [facility] 11-10-2022 Miscellaneous Notes PT referred by Daina Meraz.Icalled Pt to scheduled his New Pt Apt.. Pt. Scheduled for 02/01/2023 at 9:[address] Arellano in [place]. Barbara Molina November 10, 2022 9:45 AM documented in this encounter [facility] 11-09-2022 Note HNO ID: [id number] Author: Herminia Meraz APRN.SENIOR HEALTH EDUCATOR Service: ? Author Type: Nurse Practitioner Type: Progress Notes Filed: 11/13/2022 10:01 AM Note Text: [facility] Herminia Meraz ANALYST-SENIOR HEALTH EDUCATOR [address] [place] [address] Dept Dept. Visit Date: November 09, 2022 Mr.Joe Padilla Date of : 1960 MRN/E #: [id number] Chief Complaint: Patient presents with: Establish Care [...] foot wounds, HPL. He recently moved to [place] from [place]. Will have to request his records. He [...] beat in his heart? Has had 2 MS's- 1 stent in 2007 Cavafilter? Was never [...] by the patient and the spouse. No wine and spirits clerk was used. PAST MEDICAL HISTORY Diagnosis Date [...] lb (0.0kg) SpO2 (more content not included)... [facility] 11-09-2022 Miscellaneous Notes Patient is informed Lenore Walters MA Addended by: HERMINIA MERAZ on: 11/09/2022 05:16 PM Modules accepted: Orders I sent in a probiotic and fiber supplement to help bulk up his stool. If it is not covered, please picket [employer] and use them daily. As patient was checking out his mentioned that he has been having diarrhea and nothing OTC has been working. They were wondering if something could be sent in Lenore Walters MA documented in this encounter [facility] 11-09-2022 Instructions Herminia Meraz APRN.CNP - 11/09/2022 4:33 PM EDT [facility], call . Dr. Gomes- Pain management Dr. Arellano Cardiovascular Medicine [address] [address] Directions Appointment:[phone] [place] [address] Outpatient Lab Hours For your convenience, the outpatient laboratory is open during the following hours: Sunday- Sunday 7 a.m. - 4:30 p.m. Sunday: 8 a.m. - 11:45 a.m. The outpatient lab is closed on Sundays and hols. documented in this encounter [facility] 11-09-2022 History of Presen t illness Narrative Images from the original note were not included. [facility] Herminia Meraz APRN-COLETTE [address] [place] [address] Dept Dept. Visit Date: November 09, 2022 Mr.Joe Padilla Date of : 1960 MRN/E #: [id number] Chief Complaint: Patient presents with: Establish Care History of Present Illness Winnei Padilla is a 62 year old male here as a new patient. I reviewed past medical, surgical, social, and family histories today and updated chart. Allergies, chronic medications, and supplements were also reviewed. His is present with him today who also established care yesterday. PMH of HTN, low back pain, Type 2 DM, chronic foot wounds, HPL. He recently moved to [place] from [place]. Will have to request his records. He [...] beat in his heart? Has had 2 MS's- 1 stent in 2007 Cavafilter? Was never [...] by the patient and the spouse. No wine and spirits clerk was used. PAST MEDICAL HISTORY Diagnosis Date [...] 2022 4:19 PM documented in this encounter [facility] documented [facility] Diagnosis Chronic midline low back pain [...] for seeking consultation documented [facility]* Diagnosis Stable angina (HCC)- Primary Other and unspecified angina pectoris [facility] Diagnosis Stable angina (HCC) Other and unspecified angina pectoris documented [facility]* Diagnosis Stasis dermatitis of both legs- Primary Varicose veins of lower extremities with inflammation Wound of left foot documented [facility]* Diagnosis Vitamin D deficiency- Primary Unspecified vitamin D deficiency documented [facility]* Diagnosis Diabetic ulcer of left midfoot associated with diabetes mellitus due to underlying condition, with other ulcer severity (HCC) [facility] ([facility] Diagnostic Procedure Only (Routine) - Closed Specialty Diagnoses / Procedures Referred By Carli cook Referred To Contact XR IMAGING Diagnoses Diabetic ulcer of left midfoot associated with diabetes mellitus due to underlying condition, with other ulcer severity (HCC) Procedures XR FOOT GENERAL 3V AP/LAT/OBL LEFT RADEX FOOT COMPLETE MINIMUM 3 VIEWS Devan Foster [address] [place] [address] [place] [id number] Referral ID Status Reason Start Date Expiration Date V isits Requested Visits Authorized [id number] Closed Auto-Generate d Referral 01/22/2023 02/21/2024 [address] [facility] [address] [facility] Narrative* Diagnostic Procedure Only (Routine) - Closed Specialty Diagnoses / Procedures Referred By Contac t Referred To Contact XR IMAGING Diagnoses Diabetic ulcer of left midfoot associated with diabetes mellitus due to underlying condition, with other ulcer severity (HCC) Procedures XR FOOT GENERAL 3V AP/LAT/OBL LEFT RADEX FOOT COMPLETE MINIMUM 3 VIEWS Devan Foster [address] [place] [address] [place] [address] Referral ID Status Reason Start Date Expiration Date V isits Requested Visits Authorized [id number] Closed Auto-Generate d Referral 01/22/2023 02/21/2024 [address] [facility] Reason for Referral Specialty Diagnoses / Procedures Referred By Carli t Referred To Contact Diagnoses Wound of left foot Procedures CONSULT TO WOUND CENTER (AG) Herminia Meraz APRN.SENIOR HEALTH EDUCATOR [address] [place] [address] [place] [address] Referral ID Status Reason Start Date Expiration Date Visits Requested Visits Authorized [id number] Ref Not Required PCP Requested Referral 11/09/2022 02/07/2023 1 1 Specialty Diagnoses / Procedures Referred By Contac t Referred To Contact Diagnoses Chronic midline low back pain without sciatica Procedures CONSULT TO PAIN MGT Herminia Meraz APRN.SENIOR HEALTH EDUCATOR [address] [place] [address] Darrick Gomes [facility] - Medical Office Building [address] [place] [address] Referral ID Status Reason Start Date Expiration Date Visits Requested Visits Authorized [id number] Ref Not Required PCP Requested Referral 11/09/2022 11/09/2023 1 1 Specialty Diagnoses / Procedures Referred By Contac t Referred To Contact Cardiology Diagnoses Hypertension, essential Procedures CONSULT TO CARDIOLOGY OFFICE/OUTPATIENT [facility] 60-74 MINUTES Herminia Meraz APRN.SENIOR HEALTH EDUCATOR [address] [place] [address] Gaston Arellano MD [address] [place] [address] Referral ID Status Reason Start Date Expiration Date Visits Requested Visits Authorized [id number] Pending Review PCP Requested Referral 11/09/2022 11/09/2023 1 1 Specialty Diagnoses / Procedures Referred By Carli cook Referred To Contact Podiatry Diagnoses Stasis dermatitis of both legs Wound of left foot Procedures CONSULT TO PODIATRY OFFICE/OUTPATIENT [facility] 60-74 MINUTES Romero Rhoades MD [address] [place] [address] Referral ID Status Reason Start Date Expiration Date Visits Requested Visits Authorized [id number] Pending Review PCP Requested Referral 01/16/2023 01/16/2024 [...] or prosecute any alcohol or drug abuse patient.[facility] the event this information is protected by the Federal Confidentiality of Alcohol and Drug Abuse Patient Records regulations: The Federal rules restrict any use of the information to criminally investigate or prosecute any alcohol or drug abuse patient.[facility] Center[facility] the event this information is protected by the Federal Confidentiality of Alcohol and Drug Abuse Patient Records regulations: The Federal rules restrict any use of the information to criminally investigate or prosecute any alcohol or drug abuse patient.[facility] Center[facility] the event this information is protected by the Federal Confidentiality of Alcohol and Drug Abuse Patient Records regulations: The Federal rules restrict any use of the information to criminally investigate or prosecute any alcohol or drug abuse patient.[facility] CenterIn the event this information is protected by the Federal Confidentiality of Alcohol and Drug Abuse Patient Records regulations: The Federal rules restrict any use of the information to criminally investigate or prosecute any alcohol or drug abuse patient.[facility] CenterIn the event this information is protected by the Federal Confidentiality of Alcohol and Drug Abuse Patient Records regulations: The Federal rules restrict any use of the information to criminally investigate or prosecute any alcohol or drug abuse patient.[facility] CenterIn the event this information is protected by the Federal Confidentiality of Alcohol and Drug Abuse Patient Records regulations: The Federal rules restrict any use of the information to criminally investigate or prosecute any alcohol or drug abuse patient.[facility] CenterIn the event this information is protected by the Federal Confidentiality of Alcohol and Drug Abuse Patient Records regulations: The Federal rules restrict any use of the information to criminally investigate or prosecute any alcohol or drug abuse patient.[facility] CenterIn the event this information is protected by the Federal Confidentiality of Alcohol and Drug Abuse Patient Records regulations: The Federal rules restrict any use of the information to criminally investigate or prosecute any alcohol or drug abuse patient.[facility] CenterIn the event this information is protected by the Federal Confidentiality of Alcohol and Drug Abuse Patient Records regulations: The Federal rules restrict any use of the information to criminally investigate or prosecute any alcohol or drug abuse patient.[facility] CenterIn the event this information is protected by the Federal Confidentiality of Alcohol and Drug Abuse Patient Records regulations: The Federal rules restrict any use of the information to criminally investigate or prosecute any alcohol or drug abuse patient.[facility] Reason for Visit (unrecogniz ed section and content) Reason Comments Appointment Reason Comments Establish Care Reason Comments New Patient Reason Onset Date Comments Refill Request 11/22/2022 Reason Comments [facility] Put referral for car diology on [facility] Reason Comments Results Reason Comments Patient Question Reason Comments Appointment with junior high school teacher Reason Comments entered in error Care Teams (unrecognized sec tion and content) Sap Data Analyst Relationship Specialty Start Date End Date Romero Rhoades MD [address] [place], [place] [address] PCP - General Family Medicine 11/07/22 Sap Data Analyst Relationship Specialty Start Date End Date Romero Rhoades MD [address] [place], [place] [id number] PCP - General Family Medicine 11/07/22 Sap Data Analyst Relationship Specialty Start Date End Date Romero Rhoades MD [address] [place], [place] [id number] PCP - General Family Medicine 11/07/22 Sap Data Analyst Relationship Specialty Start Date End Date Herminia Meraz APRN.SENIOR HEALTH EDUCATOR [address] [place] [address] PCP - General Family Medicine 11/22/22 Sap Data Analyst Relationship Specialty Start Date End Date Romero Rhoades MD [address], [place] [id number] PCP - General Family Medicine 11/07/22 11/21/22 Herminia Meraz, ANALYST.SENIOR HEALTH EDUCATOR [address] [place] [address] PCP - General Family Medicine 11/22/22 Sap Data Analyst Relationship Specialty Start Date End Date Herminia Meraz, ANALYST.SENIOR HEALTH EDUCATOR [address] [place] [address] PCP - General Family Medicine 11/22/22 Sap Data Analyst Relationship Specialty Start Date End Date Herminia Meraz, ANALYST.SENIOR HEALTH EDUCATOR [address] [place] [address] PCP - General Family Medicine 11/22/22 Sap Data Analyst Relationship Specialty Start Date End Date Romero Rhoades MD [address] [place] [address] PCP - General Family Medicine 01/05/23 Darrick Gomes MD [address] [place] [id number] Pain Management Anesthesiology 01/10/23 Ellie BAUTISTA , [facility] [place], [place] [id number] Podiatry 01/10/23 Sap Data Analyst Relationship Specialty Start Date End Date Romero Rhoades MD [address], [place] [id number] PCP - General Family Medicine 01/05/23 Darrick Gomes MD [address] [place], [place] [id number] Pain Management Anesthesiology 01/10/23 Ellie HICKMANL , [address] [place], [place] [address] Podiatry 01/10/23 Sap Data Analyst Relationship Specialty Start Date End Date Romero Rhoades MD [address], [place] [id number] PCP - General Family Medicine 01/05/23 Darrick Gomes MD [address] [place], [place] [id number] Pain Management Anesthesiology 01/10/23 [facility] [address] [place], [place] [id number] Podiatry 01/10/23 (unrecognized sect ion and content) No Status Records FoundNo Status Records Found INFORMATION SOURCE (unrecogn ized section and content) DATE CREATED AUTHOR AUTHOR'S ORGANIZ ATION 04/29/2023 [facility] FOR RECORDS PERTAINING TO PATIENTS WHO ARE [...] BE BASED ON THE PRIMARY CLINICAL RECORDS. [employer] provides no warranty or guarantee of the accuracy or completeness of information in this document.
[2023-04-29 22:09] VITALS: BMI 29.2
[2023-04-29 22:17] VITALS: BP 194/103; PULSE 66; RESP 16; TEMP 36.4; O2SAT 100
[2023-04-29] MEDS: 0.9% Normal Saline (1000mL) 1,000 ML 150 ML IV (22:52)
[2023-04-29 22:54] VITALS: PULSE 66
[2023-04-29] MEDS: Heparin Injection (Vial) 5,000 UNIT/ML VIAL 5000 UNIT SC (22:54)
[2023-04-29] MEDS: busPIRone 5 MG Tablet PO (22:54)
[2023-04-29] MEDS: Metoprolol Tartrate 100 MG Tablet PO (22:54)
[2023-04-29] MEDS: oxyCODONE CR 15 MG Tablet PO (22:55)
[2023-04-30] MEDS: Sodium Polystyrene Sulfonate 15 GM/60 ML UDC 30 GM PO (02:23)
[2023-04-30 02:25] VITALS: BP 143/66; PULSE 75; RESP 18; TEMP 36.9; O2SAT 97
[2023-04-30] MEDS: 0.9% Normal Saline (1000mL) 1,000 ML 150 ML IV (04:51)
[2023-04-30] MEDS: busPIRone 5 MG Tablet PO ×2 (04:51→13:20)
--- NOTE | 2023-04-30 05:55 | US_ITS ---
STUDY: RENAL ULTRASOUND - COMPLETE REASON FOR EXAM: Male, 63 years old. Acute kidney injury TECHNIQUE: Ultrasound evaluation of the kidneys was performed with real-time and static godoy-scale imaging. COMPARISON: None. FINDINGS: RIGHT KIDNEY: Normal location of the right kidney, which is normal in size. The right kidney measures 12.3 cm x 6.4 cm x 6.3 cm. There is a normal cortex of the right kidney. The renal cortex measures 2.0 cm. 3 right renal cysts are seen. The largest cyst measures 1.8 cm x 1.9 cm x 1.8 cm. 6 mm x 6 mm x 4 mm nonobstructive intrarenal calculus. There is no right hydronephrosis. DISTAL RIGHT URETER: There is non-visualization of the distal right ureter. There is no demonstrated right ureterovesical junction calculus. There is a visualized right ureteral jet. LEFT KIDNEY: Normal location of the left kidney, which is normal in size. The left kidney measures 11.8 cm x 5.1 cm x 6.1 cm. There is a normal cortex of the left kidney. The renal cortex measures 2.0 cm. 2 left renal cysts are seen. The larger measures 1.3 cm x 1.3 cm x 1 cm. A nonobstructive intrarenal calculus is seen measuring 4 mm x 4 mm x 4 mm. There is no left hydronephrosis. DISTAL LEFT URETER: There is non-visualization of the distal left ureter. There is no demonstrated left ureterovesical junction calculus. There is a visualized left ureteral jet. BLADDER: The distended urinary bladder has a volume of 43.3 ml. There is a normal wall thickness of the distended urinary bladder. There is no demonstrated mass within the urinary bladder. There are no demonstrated bladder calculi. US/Kidney and Bladder IMPRESSION: Bilateral renal cysts. Small bilateral nonobstructive intrarenal calculi. Electronically Signed: Ezio Valdes MD at 11:07 EST ,
[2023-04-30] MEDS: oxyCODONE 5 MG Tablet PO (05:56)
[2023-04-30] MEDS: Acetaminophen 325 MG Tablet 650 MG PO (05:56)
[2023-04-30 06:35] LABS: Bedside Glucose 121 mg/dL (74-106)
[2023-04-30 06:41] LABS: Absolute Lymphocyte Count 1.21 X10^3/uL (0.83-4.51); Absolute Neutrophil Count 6.8 X10^3/uL (2.0-7.7); Basophil# 0.07 X10^3/uL; Basophil% 0.8 % (0-1); Eosinophil# 0.22 X10^3/uL; Eosinophils% 2.4 % (0-5); Hemoglobin 8.9 g/dL (13.0-16.5); Lymphocyte # 1.21 X10^3/ul (0.83-4.51); Lymphocyte % 13.3 % (19-41); Mean Corpuscular Hgb 31.1 pg (27.0-32.0); Mean Corpuscular Volume 94.4 fL (80-94); Mean Platelet Vol. 12.4 fl (6.2-12.0); Monocyte# 0.83 X10^3/uL; Monocyte% 9.1 % (0-10); NRBC Flagged by Analyzer 0 % (0-5); Neutrophil # 6.76 X10^3/uL (2.7-7.7); Neutrophil % 74.1 % (47-70); Platelet Count 122 K/mm3 (150-450); RBC Distribution Width CV 13.5 % (11.6-14.6); RBC Distribution Width SD 46.1 fl (35.1-43.9); Red Blood Count 2.86 M/mm3 (4.6-6.2); White Blood Count 9.1 K/mm3 (4.4-11.0)
[2023-04-30 07:11] LABS: Albumin, Serum 2.4 g/dL (3.2-5.0); BUN 54 mg/dL (7-18); BUN/Creat Ratio 18.5 RATIO (10-20); Calcium,Total 8.4 mg/dL (8.5-10.1); Chloride 110 mmol/L (98-107); Creatinine, Serum 2.92 mg/dL (0.70-1.30); EST Glomerular Filtration Rate 23 mL/min (>60); Est Glom Filt Rate - Afr Amer 28 mL/min (>60); Estimated Creatinine Clearance 28.69 ml/min; Glucose 116 mg/dL (74-106); Phosphorus 4.6 mg/dL (2.5-4.9); Potassium 3.8 mmol/L (3.5-5.1); Sodium Level 141 mmol/L (136-145)
[2023-04-30 08:06] VITALS: BP 143/71; PULSE 72; RESP 16; TEMP 36.9; O2SAT 98
[2023-04-30] MEDS: amLODIPine 5 MG Tablet PO (10:36)
[2023-04-30] MEDS: Glucerna Shake 120 ML LIQUID PO (10:36)
[2023-04-30 10:37] VITALS: BP 143/71; PULSE 72
[2023-04-30] MEDS: Metoprolol Tartrate 100 MG Tablet PO (10:37)
[2023-04-30] MEDS: oxyCODONE CR 15 MG Tablet PO (10:37)
[2023-04-30] MEDS: Venlafaxine XR 75 MG Capsule PO (10:38)
[2023-04-30] MEDS: 0.9% Saline Lock 10 ML Syringe IV (10:38)
[2023-04-30] MEDS: Venlafaxine XR 150 MG Capsule PO (10:38)
[2023-04-30] MEDS: Heparin Injection (Vial) 5,000 UNIT/ML VIAL 5000 UNIT SC (10:39)
[2023-04-30 10:49] LABS: Urea Nitrogen, Urine 477 mg/dL (NO RANGE EST.)
[2023-04-30 13:28] LABS: Bedside Glucose 132 mg/dL (74-106)
--- NOTE | 2023-04-30 14:13 | DCINST_ITS ---
Discharge Instructions Diet Discharge Diet: Carb Control Diet and Renal Diet Activity Discharge Activity: Return to Normal Activity Follow Up Care Test Results: Test results from this visit will be discussed in further detail at your follow- up appointment, if applicable. Discharge Plan Admission Admit Date/Time: 04/29/23 21:27 Primary Reason for Your Visit: Decreased kidney function Attending Provider: Amber Albarado Primary Care Provider: Jarrod Rhoades Consulting Providers: Rola Bradshaw Instructions Patient Instructions: CKD Dc, ED Chronic Kidney Disease (CKD) Additional Instructions / Restrictions: DISCHARGE INSTRUCTIONS PLEASE READ *Please take this with you to your next doctors appointment* -Please follow-up with nephrology upon discharge. Please call their office as below to schedule hospital follow-up appointment upon discharge. -Would recommend lab work (BMP and CBC) to check your kidney function and blood counts in 2 to 3 days through your primary care physician's office. Please call their office upon discharge to obtain order for lab work. -Would recommend holding losartan until you have follow-up lab work and would recommend taking amlodipine daily -If you have any worsening in kidney function you may need to be placed on a different blood thinner, please discuss this with your primary care physician at your follow up appointment. -Strongly advised that you avoid taking any naproxen, ibuprofen, Aleve or other NSAIDs -Please call your primary care provider's office upon discharge to schedule a hospital follow up within 1 week. -For any concerning signs or symptoms please call 911 or proceed to the nearest emergency department Discharge Orders/Prescriptions Prescriptions: Continued amitriptyline 50 mg tablet 50 mg PO QHS amlodipine 5 mg tablet 5 mg PO DAILY Patient Comments: not taking at this moment d/t bradycardia 04/29/23 atorvastatin 80 mg tablet 80 mg PO QHS Patient Comments: not taking everyday, but occasionally as of 04/29/23 buspirone 5 mg tablet 5 mg PO TID Trulicity 1.5 mg/0.5 mL pen injector 1.5 mg SUBCUT QWEEK Patient Comments: takes on sun gabapentin 300 mg capsule 300 mg PO Q12H Patient Comments: takes as needed 04/29/23 metoprolol tartrate 100 mg tablet 100 mg PO Q12H Patient Comments: takes once daily in the morning 04/29/23 nitroglycerin 0.4 mg tablet, sublingual 0.4 mg sublingual Q5M PRN (Reason: chest pain) Xtampza ER 13.5 mg cap,sprinkl,ER12hr(DONT CRUSH) 13.5 mg PO Q12H Rx Instructions: do not crush ranolazine 500 mg tablet extended release 12 hr 500 mg PO Q12H venlafaxine 75 mg capsule,extended release 24hr 75 mg PO DAILY Patient Comments: takes with 150 mg tablet venlafaxine 150 mg capsule,extended release 24hr 150 mg PO DAILY Patient Comments: takes with 75 mg tablet rivaroxaban [Xarelto] 20 mg PO DAILY Patient Comments: does not take daily but occasionally; doctors had thought it may be contributing to kidney dysfunction Held losartan 100 mg tablet 100 mg PO DAILY Hold Instructions: Resume on 05/03/23. Would recommend holding losartan until you have follow-up lab work Discontinued naproxen 500 mg tablet 500 mg PO Q12H PRN (Reason: pain) Referrals / Follow Up: Jarrod Rhoades MD [Primary Care Provider] - Within 1 Week Bassem Cedeño MD [Med Staff - Consulting] - ( -Please follow-up with nephrology upon discharge. Please call their office to schedule hospital follow-up appointment upon discharge.) Disposition Disposition (needs filled in before D/C Order can be placed): Home, Self Care
--- NOTE | 2023-04-30 14:32 | DS.PCM_ITS ---
Providers Date of Admission: 04/29/23 Date of Discharge: 04/30/23 Primary Care Physician: Dr. Jarrod Rhoades MD Consultations 04/30/23 06:11 Consult: Nephrology Routine Consulting Provider: Dharmesh Pat Reason for Consult: probable CKD vs ROSALBA EMERGENT Consult: No MD Notified: Yes Date Notified: 04/30/23 Time Notified: 09:49 Method of Notification: Answering Service Method of Consult:: In-Person 04/30/23 08:31 Consult: Onc/Wound/nuclear medicine pet ct technologist Routine Comment: Reason for Consult:: left foot dm ulcers Reason For Visit: ROSALBA VS CKD, HYPERKALEMIA Diagnosis Discharge Diagnosis (1) Hyperkalemia: Status: Acute Code(s): E87.5 - Hyperkalemia (2) CKD (chronic kidney disease): Status: Chronic Code(s): N18.9 - Chronic kidney disease, unspecified Plan #Suspect CKD IV #Hx DVT/PE #Hyperkalemia- resolved #HTN #DMII #Hx CAD #Chronic pain Medications at Discharge Home Medications amitriptyline 50 mg tablet 50 mg PO QHS SLEEP 04/29/23 amlodipine 5 mg tablet 5 mg PO DAILY BP 04/29/23 atorvastatin 80 mg tablet 80 mg PO QHS HYPERLIPIDEMIA 04/29/23 buspirone 5 mg tablet 5 mg PO TID anxiety 04/29/23 dulaglutide 1.5 mg/0.5 mL subcutaneous pen injector (Trulicity) 1.5 mg subcut QWEEK diabetes 04/29/23 gabapentin 300 mg capsule 300 mg PO Q12H neuropathy 04/29/23 losartan 100 mg tablet 100 mg PO DAILY hypertension 04/29/23 metoprolol tartrate 100 mg tablet 100 mg PO Q12H heart rate and blood pressure 04/29/23 nitroglycerin 0.4 mg sublingual tablet 0.4 mg sublingual Q5M PRN chest pain 0 04/29/23 oxycodone myristate 13.5 mg capsule sprinkle extend release 12hr(DON'T CRUSH) (Xtampza ER) 13.5 mg PO Q12H lower extremity pain 04/29/23 ranolazine 500 mg tablet,extended release,12 hr 500 mg PO Q12H chest pain 04/29/23 rivaroxaban 20 mg PO DAILY 04/29/23 venlafaxine 150 mg capsule,extended release 24 hr 150 mg PO DAILY depression 04/29/23 venlafaxine 75 mg capsule,extended release 24 hr 75 mg PO DAILY depression 04/29/23 Hospital Course Summary of Care Provided Minutes Spent on Discharge: 31 Hospital Course: Per HPI: WINNIE MOORE, is a 63 M with a PMH as outlined who presents via the ED on 04/29/2023 with a complaint of abnormal labs. He recently moved to [place] from [place] about 6 months ago and established with a PCP. He saw the PCP ~ 1 week ago and had bloodwork done. He was called to come to the ED due to abnormal renal function. Cr per the bloodwork done on outpatient basis was 2.91. He denies any history or renal impairment, and denies and denies any difficulty urinating or history of kidney stones. He denies any herbal medication intake and review of systems is otherwise negative. He says he was told in [place] that his renal function wasnt where it was supposed to be, but didnt remember any actual numbers. Vitals in the ED were BP of 171/81, temp of 96.9F, MO of 66 and RR of 15; he was starting at 100% on room air. CBC showed hb of 10.8, wbc of 12.5, platelets of 134. Chemistry showed sodium of 137, potassium of 5.3 and Cr of 2.84, no baseline Cr known. Urinalysis showed protein of 500 but was otherwise unremarkable. He is being admitted to be managed for ROSALBA vs probable CKD. INTERVAL HISTORY: Kidney function fairly stable overnight and patient continues to have no complaints, renal ultrasound with bilateral renal cysts and small bilateral nonobstructive intrarenal calculi, Fena 3% indicating intrarenal pathology. Suspect patient has CKD, given stability of labs and patient clinically feel he can follow-up outpatient with nephrology, patient agreeable to plan verbalized understanding. Of note reviewed xeralto in regards to CrCl and creatinine clearance calculated with original Cockcroft-Gault was 33 which is above the cutoff for dose adjustment so pt will be continued on this at this time. D/c inst as follows: -Please follow-up with nephrology upon discharge. Please call their office as below to schedule hospital follow-up appointment upon discharge. -Would recommend lab work (BMP and CBC) to check your kidney function and blood counts in 2 to 3 days through your primary care physician's office. Please call their office upon discharge to obtain order for lab work. -Would recommend holding losartan until you have follow-up lab work and would recommend taking amlodipine daily -If you have any worsening in kidney function you may need to be placed on a different blood thinner, please discuss this with your primary care physician at your follow up appointment. -Strongly advised that you avoid taking any naproxen, ibuprofen, Aleve or other NSAIDs -Please call your primary care provider's office upon discharge to schedule a hospital follow up within 1 week. -For any concerning signs or symptoms please call 911 or proceed to the nearest emergency department Physical Exam Narrative General: Alert, oriented, no apparent distress HEENT: Atraumatic, normocephalic Eyes: Anicteric, normal conjunctiva, extraocular movements grossly intact Neck: Supple Respiratory: Clear to auscultation bilaterally, normal respiratory effort Cardiovascular: Regular rate and rhythm GI: Soft, nontender, nondistended Extremities: No edema Musculoskeletal: Moving all extremities Neuro: No overt focal neurological deficits Skin: No rashes appreciated Psych: Cooperative Weight / BMI Weight Weight: 89.8 kg Body Mass Index (BMI) 29.2 ABG / Lab / Microbiology Data 04/30/23 05:44 04/30/23 05:44 Laboratory: Laboratory Results - last 24 hr 04/29/23 19:55: WBC 12.5 H, RBC 3.40 L, Hgb 10.8 L, Hct 31.8 L, MCV 93.5, MCH 31.8, MCHC 34.0, RDW Std Deviation 45.9 H, RDW Coeff of Padmaja 13.4, Plt Count 134 L, MPV 12.2 H, Immature Gran % (Auto) 0.400, Neut % (Auto) 70.9 H, Lymph % (Auto) 14.8 L, Mora % (Auto) 10.9 H, Eos % (Auto) 2.2, Baso % (Auto) 0.8, Absolute Neuts (auto) 8.9 H, Absolute Lymphs (auto) 1.86, Nucleated RBC % 0, Sodium 137, Potassium 5.3 H, Chloride 106, Carbon Dioxide 21.0, Anion Gap 10, BUN 51 H, Creatinine 2.84 H, Estim Creat Clear Calc 26.62, Est GFR (MDRD) Af Amer 29 L, Est GFR (MDRD) Non-Af 24 L, BUN/Creatinine Ratio 18.0, Glucose 140 H, Calcium 9.0, Total Bilirubin 0.70, Direct Bilirubin 0.12, AST 23, ALT 18, Alkaline Phosphatase 79, Total Protein 10.0 H, Albumin 2.8 L, Globulin 7.2 H 04/29/23 20:09: Urine Color Yellow, Urine Clarity Clear, Urine pH 6.5, Ur Specific [place] 1.015, Urine Protein 500 H, Urine Glucose (UA) 100 H, Urine Ketones Negative, Urine Occult Blood 25 H, Urine Nitrite Negative, Urine Bilirubin Negative, Urine Urobilinogen Normal, Ur Leukocyte Esterase Negative, Urine RBC 0-5 SEEN, Urine WBC 0-5 SEEN, Ur Squamous Epith Cells 0 SEEN, Urine Bacteria 0 SEEN, Urine Mucus 0 SEEN, Ur Random Sodium 65, Urine Creatinine 45.60 04/30/23 05:44: WBC 9.1, RBC 2.86 L, Hgb 8.9 L, Hct 27.0 L, MCV 94.4 H, MCH 31.1, MCHC 33.0, RDW Std Deviation 46.1 H, RDW Coeff of Padmaja 13.5, Plt Count 122 L, MPV 12.4 H, Immature Gran % (Auto) 0.300, Neut % (Auto) 74.1 H, Lymph % (Auto) 13.3 L, Mora % (Auto) 9.1, Eos % (Auto) 2.4, Baso % (Auto) 0.8, Absolute Neuts (auto) 6.8, Absolute Lymphs (auto) 1.21, Nucleated RBC % 0, Sodium 141, Potassium 3.8, Chloride 110 H, Carbon Dioxide 24.0, BUN 54 H, Creatinine 2.92 H, Estim Creat Clear Calc 28.69, Est GFR (MDRD) Af Amer 28 L, Est GFR (MDRD) Non-Af 23 L, BUN/Creatinine Ratio 18.5, Glucose 116 H, Calcium 8.4 L, Phosphorus 4.6, Albumin 2.4 L 04/30/23 05:50: POC Glucose 121 H 04/30/23 08:34: Urine Creatinine 54.80, Urine Urea Nitrogen 477 04/30/23 13:11: POC Glucose 132 H Radiography Diagnostic Testing: Radiology Impression Renal Ultrasound 04/30/23 05:55 IMPRESSION: Bilateral renal cysts. Small bilateral nonobstructive intrarenal calculi. Electronically Signed: Ezio Valdes MD at 11:07 EST , D/C Instructions Discharge Diet: Carb Control Diet and Renal Diet Meaningful Use Info Meaningful Use Diagnoses (Choose all that apply): None applicable Discharge Plan Admission Admit Date/Time: 04/29/23 21:27 Primary Reason for Your Visit: Decreased kidney function Attending Provider: Amber Albarado Primary Care Provider: Jarrod Rhoades Consulting Providers: Rola Bradshaw Instructions Patient Instructions: CKD Dc, ED Chronic Kidney Disease (CKD) Additional Instructions / Restrictions: DISCHARGE INSTRUCTIONS PLEASE READ *Please take this with you to your next doctors appointment* -Please follow-up with nephrology upon discharge. Please call their office as below to schedule hospital follow-up appointment upon discharge. -Would recommend lab work (BMP and CBC) to check your kidney function and blood counts in 2 to 3 days through your primary care physician's office. Please call their office upon discharge to obtain order for lab work. -Would recommend holding losartan until you have follow-up lab work and would recommend taking amlodipine daily -If you have any worsening in kidney function you may need to be placed on a different blood thinner, please discuss this with your primary care physician at your follow up appointment. -Strongly advised that you avoid taking any naproxen, ibuprofen, Aleve or other NSAIDs -Please call your primary care provider's office upon discharge to schedule a hospital follow up within 1 week. -For any concerning signs or symptoms please call 911 or proceed to the nearest emergency department Discharge Orders/Prescriptions Prescriptions: Continued amitriptyline 50 mg tablet 50 mg PO QHS amlodipine 5 mg tablet 5 mg PO DAILY Patient Comments: not taking at this moment d/t bradycardia 04/29/23 atorvastatin 80 mg tablet 80 mg PO QHS Patient Comments: not taking everyday, but occasionally as of 04/29/23 buspirone 5 mg tablet 5 mg PO TID Trulicity 1.5 mg/0.5 mL pen injector 1.5 mg SUBCUT QWEEK Patient Comments: takes on sun gabapentin 300 mg capsule 300 mg PO Q12H Patient Comments: takes as needed 04/29/23 metoprolol tartrate 100 mg tablet 100 mg PO Q12H Patient Comments: takes once daily in the morning 04/29/23 nitroglycerin 0.4 mg tablet, sublingual 0.4 mg sublingual Q5M PRN (Reason: chest pain) Xtampza ER 13.5 mg cap,sprinkl,ER12hr(DONT CRUSH) 13.5 mg PO Q12H Rx Instructions: do not crush ranolazine 500 mg tablet extended release 12 hr 500 mg PO Q12H venlafaxine 75 mg capsule,extended release 24hr 75 mg PO DAILY Patient Comments: takes with 150 mg tablet venlafaxine 150 mg capsule,extended release 24hr 150 mg PO DAILY Patient Comments: takes with 75 mg tablet rivaroxaban [Xarelto] 20 mg PO DAILY Patient Comments: does not take daily but occasionally; doctors had thought it may be contributing to kidney dysfunction Held losartan 100 mg tablet 100 mg PO DAILY Hold Instructions: Resume on 05/03/23. Would recommend holding losartan until you have follow-up lab work Discontinued naproxen 500 mg tablet 500 mg PO Q12H PRN (Reason: pain) Referrals / Follow Up: Jarrod Rhoades MD [Primary Care Provider] - Within 1 Week Bassem Cedeño MD [Med Staff - Consulting] - ( -Please follow-up with nephrology upon discharge. Please call their office to schedule hospital follow-up appointment upon discharge.) Disposition Disposition (needs filled in before D/C Order can be placed): Home, Self Care Charges/Coding Visit Charges Inpatient E&M: 53748 Disch Hosp >30min
--- NOTE | 2023-04-30 14:55 | PHA.DC.MR.R ---
Pharmacy [place] Med Reconciliation Pharmacy Service has performed discharge medication reconciliation for this patient. The patient's discharge medication list was reviewed for discrepancies and discrepancies were resolved. Medications at Discharge Home Medications amitriptyline 50 mg tablet 50 mg PO QHS SLEEP 04/29/23 amlodipine 5 mg tablet 5 mg PO DAILY BP 04/29/23 atorvastatin 80 mg tablet 80 mg PO QHS HYPERLIPIDEMIA 04/29/23 buspirone 5 mg tablet 5 mg PO TID anxiety 04/29/23 dulaglutide 1.5 mg/0.5 mL subcutaneous pen injector (Trulicity) 1.5 mg subcut QWEEK diabetes 04/29/23 gabapentin 300 mg capsule 300 mg PO Q12H neuropathy 04/29/23 losartan 100 mg tablet 100 mg PO DAILY hypertension 04/29/23 metoprolol tartrate 100 mg tablet 100 mg PO Q12H heart rate and blood pressure 04/29/23 nitroglycerin 0.4 mg sublingual tablet 0.4 mg sublingual Q5M PRN chest pain 04/29/23 oxycodone myristate 13.5 mg capsule sprinkle extend release 12hr(DON'T CRUSH) (Xtampza ER) 13.5 mg PO Q12H lower extremity pain 04/29/23 ranolazine 500 mg tablet,extended release,12 hr 500 mg PO Q12H chest pain 04/29/23 rivaroxaban 20 mg PO DAILY 04/29/23 venlafaxine 150 mg capsule,extended release 24 hr 150 mg PO DAILY depression 04/29/23 venlafaxine 75 mg capsule,extended release 24 hr 75 mg PO DAILY depression 04/29/23
--- NOTE | 2023-04-30 15:10 | CASEMGMT ---
Pt denies the need for outpt therapy at this time. Pt states that he and his will see their PCPs and possibly set up outpt therapy at that time. Pt states his will pick him up at [place]. Denies further needs.
--- NOTE | 2023-04-30 15:29 | WOUNDNOTE ---
Was asked to see patient for diabetic ulcers to the right foot. patient has some dry calloused areas to the left great toe and left plantar foot. patient states he follows with Dr Amezcua and gets areas shaved down off and on. pt states he has been delaing with them for years. no drainage or signs of infection noted. will leave [facility] at this time. will monitor as needed.
[2023-04-30 15:49] VITALS: BP 138/68; PULSE 70; RESP 16; TEMP 36.5; O2SAT 99
--- NOTE | 2023-04-30 15:53 | CHAPLAIN ---
Type of Pastoral Visit _x__ Initial Visit ___ Follow-up Visit ___ On-call Visit ___ General Patient Visit ___ Spiritual Assessment ___ Family Conference ___ Bereavement ___ Rapid Response ___ Code Blue ___ Other (describe below) Pastoral Care Referral From _x__ Patient ___ Family ___ Nurse ___ Physician ___ Twister Doffer ___ Section Cutter ___ Other (describe below) Sacrament/Intervention _x__ Active listening ___ Anointing ___ Yazidism ___ Bereavement ___ Communion _x__ Sherry exploration ___ _x__ Life review _x__ Prayer ___ Reconciliation ___ Sacrament of Sick _x__ Supportive presence ___ Wedding ___ Other (describe below) Pastoral Comments patient is welcoming and explains that he 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
[2023-05-01 16:09] LABS: PSA, Total 0.7 ng/mL (0.0-4.0)
== END 2023-04-30 16:25 | disposition home or self-care (01) ==
LOC: ED 21:23 → MS3 21:46
PROVIDERS: Admitting Provider Student in an Organized Health Care Education/Training Program; Emergency Provider Emergency Medicine; PCP Family Medicine; Visit Provider Internal Medicine
DX: E87.5 Hyperkalemia (principal); N17.9 Acute kidney failure, unspecified; D69.6 Thrombocytopenia, unspecified; E11.9 Type 2 diabetes mellitus without complications; Z79.01 Long term (current) use of anticoagulants; I12.9 Hypertensive chronic kidney disease with stage 1 through stage 4 chronic kidney disease, or unspecified chronic kidney disease; F17.220 Nicotine dependence, chewing tobacco, uncomplicated; I25.10 Atherosclerotic heart disease of native coronary artery without angina pectoris; N18.9 Chronic kidney disease, unspecified; R94.4 Abnormal results of kidney function studies; Z86.718 Personal history of other venous thrombosis and embolism; Z86.711 Personal history of pulmonary embolism; Z79.899 Other long term (current) drug therapy; F17.210 Nicotine dependence, cigarettes, uncomplicated
CPT/HCPCS: 36415; 76770; 80048; 80069; 80076; 81001; 82570; 82962; 84153; 84300; 84540; 85025; 93005; 96360; 96361; 96372; 97161; 97166; 97802; 99221; 99284; J7030; A4216; G0378

== ENCOUNTER → 2023-05-16 | Outpatient (CLI) | payer MEDICARE, SELFPAY ==
[2023-05-16 17:18] LABS: Amphetamine Urine VISTA NEGATIVE (<1000 ng/mL); Barbiturate Urine VISTA NEGATIVE (< 200 ng/mL); Benzodiazepine Urine VISTA NEGATIVE (< 200 ng/mL); Cocaine Urine VISTA NEGATIVE (< 300 ng/mL); Ecstacy Urine VISTA NEGATIVE (< 500 ng/mL); Methadone Urine VISTA NEGATIVE (< 300 ng/mL); PCP Urine VISTA NEGATIVE (< 25 ng/mL); THC Urine VISTA NEGATIVE (< 50 ng/mL); Vista UDS pH Range 5
== END | disposition home or self-care (01) ==
LOC: LAB 16:53
PROVIDERS: PCP Family Medicine; Referring Provider Anesthesiology Pain Medicine; Visit Provider Anesthesiology Pain Medicine
DX: F11.20 Opioid dependence, uncomplicated (principal)
CPT/HCPCS: 80307